=== PATIENT | male | born 1975 | race Caucasian/White ===

== ENCOUNTER → 2016-03-06 | Outpatient (CLI) | payer MEDICAID ==
[~2016-03-06] MED LIST: AMOXIL500 M1 PO; BACTRIM DS 8001 TAB PO; BYSTOLIC5 MG PO; CARVEDILOL 1212.5 MG PO; CARVEDILOL12.5 MG PO; CIPRODEX 0.3%-7.5 ML OT; CLONIDINE HYDR0.2 MG PO; FLEXERIL10 MG PO; HYDROCHLOROTHIA1 TA2 PO; HYDROCHLOROTHIA25 M1 PO; INDOMETHACIN50 MG PO; KEFLEX 500MG.500 MG PO; LISINOPRIL 10MG10 MG PO; LISINOPRIL 20MG20 MG PO; LISINOPRIL AND1 TA3 PO; LISINOPRIL/HCTZ1 TA3 PO; LISINOPRIL20 MG PO; METOPROLOL50 MG PO; NAPROSYN 500MG500 MG PO; PREDNISONE 20MG20 MG PO; SULFAMETHOXAZOL1 TA6 PO; VISTARIL25 MG PO; ZESTORETIC 25 M1 TA1 PO; ZITHROMAX Z PA250 MG PO; ZYRTEC10 M1 PO
== END ==
LOC: RT 15:18
DX: R55 Syncope and collapse (principal)

== ENCOUNTER → 2016-03-09 | Outpatient (CLI) | payer MEDICAID ==
--- NOTE | 2016-03-09 09:28 | CARDIOVASCULAR REPORT ---
"Cerebrovascular Exam Indications: 780.2 Syncope and collapse. IMPRESSIONS 1. The bilateral vertebral arteries are patent with normal antegrade flow. 2. Study suggests less than 20% stenosis involving the right internal carotid artery and the left internal carotid artery. History: Risk factors: Hypertension. Carotid duplex study. Complete study and Doppler flow study including spectral analysis, color and marie scale imaging. Height: Height: 188cm. Height: 74in. Weight: Weight: 107kg. Weight: 235.5lb. Body mass index: BMI: 30.3kg/m^2. Body surface area: BSA: 2.39m^2. Location: Vascular laboratory. Patient status: Outpatient. Tables: Arterial flow: + +--------+--------+ |Location |V sys |V ed | + +--------+--------+ |Right CCA - proximal|77.8cm/s|25.1cm/s| + +--------+--------+ |Right CCA - distal |67.6cm/s|28.3cm/s| + +--------+--------+ |Right ECA |80.9cm/s|--------| + +--------+--------+ |Right ICA - proximal|62.9cm/s|17.3cm/s| + +--------+--------+ |Right ICA - mid |29.8cm/s|12.7cm/s| + +--------+--------+ |Right ICA - distal |65.1cm/s|29.2cm/s| + +--------+--------+ |Right vertebral |39.7cm/s|--------| + +--------+--------+ |Left CCA - proximal |62.3cm/s|16cm/s | + +--------+--------+ |Left CCA - distal |72.2cm/s|27.6cm/s| + +--------+--------+ |Left ECA |92.6cm/s|--------| + +--------+--------+ |Left ICA - proximal |43.2cm/s|15.7cm/s| + +--------+--------+ |Left ICA - mid |77.3cm/s|34.9cm/s| + +--------+--------+ |Left ICA - distal |81.2cm/s|38.4cm/s| + +--------+--------+ |Left vertebral |41.5cm/s|--------| + +--------+--------+ Velocity ratios: + + + + + + | |Right, V sys|Right, V ed|Left, V sys|Left, V ed| + + + + + + |Max ICA/dist CCA|0.96 |1.03 |1.12 |1.39 | + + + + + + (Report amended ) Electronically signed by: Mat Wilson [id number]"
--- NOTE | 2016-03-09 16:17 | RADIOLOGY REPORT PS360 ---
[id number] HISTORY: HTN,SYNCOPE,ABNORMAL EKG,CKD STAGE II COMPARISON: None FINDINGS: RIGHT KIDNEY:Unremarkable. Normal size and echogenicity. No hydronephrosis. 12 x 5 x 6 cm LEFT KIDNEY:Unremarkable. No hydronephrosis. Normal size and echogenicity.. 10 x 5 x 6 cm OTHER FINDINGS: Cholelithiasis incidentally noted IMPRESSION: 1. Negative bilateral renal ultrasound. 2. Cholelithiasis
== END ==
LOC: RAD 08:23 → RT 09:30
DX: R55 Syncope and collapse (principal); I10 Essential (primary) hypertension; R94.31 Abnormal electrocardiogram [ECG] [EKG]; N18.2 Chronic kidney disease, stage 2 (mild)

== ENCOUNTER 2016-10-26 23:11 | Emergency (ER) | payer MEDICAID ==
[~2016-10-26] VITALS: Ht 188 cm; Wt 111.1 kg
[2016-10-27] MEDS ORDERED: PREDNISONE 20MG20 MG PO (00:38)
--- NOTE | 2016-10-27 00:39 | Emergency Room Report ---
History of Present Illness Time Seen by MD Marsh Presenting Problem in Triage Pt arrived:Walked Presenting Problem:C/O LEFT KNEE PAIN AND SWELLING. NO KNOWN INJURY Onset of symptoms date/time:10/26/16 or onset unknown for: Treatment Prior to Arrival: [facility] [employer] Provided by: Sepsis Risk Assessment: Temp: 97.8 B/P: 156/99 MAP: 118 Pulse: 103 Resp: 20 Recent fever? N Clinical Suspician of Infection? N Mental Status: 1 - Regular (Normal Baseline) Sepsis Risk:Possible Sepsis Risk Have you (or family members/close friends) recently traveled outside the [place]? N If Yes, where/when: Have you had exposure to infectious disease within the past month? N TB? Other? Specify: Source patient, RN notes reviewed, family, old records Exam Limitations no limitations Comment atraumatic lt knee pain and has swelling and stiff with no reddness over the last few days Cardiac Chest Pain Chest pain indicative of cardiac No Timing/Duration this evening Severity moderate ALLERGIES Coded Allergies: No Known Allergies (02/28/16) Home Medications Active Scripts LISINOPRIL/HYDROCHLOROTHIAZIDE (Lisinopril-Hctz 20-25 MG Tab) 1 TAB PO DAILY #30 TAB Ref 2 Prov: 02/29/16 Metoprolol Tartrate (Metoprolol) 50 MG PO BID #60 TAB Ref 2 Prov: 02/29/16 History Medical History General CAD? No Angina: Yes [place]: No Hypertension? Yes Hyperlipidemia? No CHF? No DVT? No PE? No COPD? No Asthma? No Anemia? No GERD? No Gastric ulcers? No GI Bleed? No Hernia? No Thyroid Problems? No Hypothyroidism? No CVA? No Seizures? No Diabetes? No Renal Insuffiency? Yes End Stage Renal Disease? No UTI? No Stones? No BPH? No GB Disease: No Nephritic Syndrome? No Asplenia? No Hepatitis? No Sickle Cell Disease? No Arthritis? No Migraines? No Cataracts? No Glaucoma? No MRSA? No HIV? No TB? No Anxiety? No Depression? No Cancer? No More? 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 Respiratory denies cough, denies shortness of breath Cardiovascular denies chest pain, denies palpitations, denies syncope Gastrointestinal denies abdominal pain, denies diarrhea, denies vomiting Genitourinary denies: dysuria, frequency, hesitancy, hematuria. Musculoskeletal see HPI, denies back pain, joint pain, joint swelling, denies neck pain Skin denies rash Psychiatric/Neurological denies seizure Physical Exam Vital Signs Vital Signs Date Time Temp Pulse Resp B/P Pulse O2 O2 Flow FiO2 Ox Delivery Rate 10/26 2319 97.8 103 20 156/99 95 - WBC >12,000 or <4,000 or 10% bands? 2 or more SIRS Criteria Met? B/P:156/99 MAP:118 Creatinine >2.0? UA output<0.5ml/kg/hr for 2 hrs? Platelet count >100,000? Lactate >2.0mmol/1? INR >1.2 or PTT > than 60 sec? Evidence of Organ Dysfunction? Provider documented clinical suspician of infection? N Sepsis Criteria Count: 2 Sepsis Risk: Possible Sepsis Risk General Appearance no apparent distress Eye Exam - bilateral eye PERRL, bilateral eye EOMI Ear, Nose, Throat normal ENT inspection Neck non-tender Respiratory Status No: respiratory distress. Cardiovascular regular rate/rhythm Peripheral Pulses Pulses normal Yes Extremities no calf tenderness, swelling, sl effusion and good rom of lt knee - neurovascuylar ok Strength 4 Upper Ext (L), 4 Upper Ext (R), 4 Lower Ext (L), 4 Lower Ext (R) Neurologic alert, gas and oil servicer II-XII nml as tested, no motor/sensory deficits Reflexes Reflexes normal No Mental status normal mood/affect Skin intact Medical Decision Making LABS/Meds/Orders Pt receiving controlled substance in ED? No Results/Orders Orders Procedure Date/time Status KNEE-3 VIEWS-LT 10/26 2324 Active XRAY/CT/US XRAY/CT/US XRAY knee XR interpretation by reviewed by me Xray Results no fracture seen Departure Departure Time of Disposition 0032 Disposition DC Home or Self Care(routine) Clinical Impression Primary Impression: Sprain of knee Qualifiers: Encounter type: initial encounter Involved ligament of knee: unspecified ligament Laterality: left Qualified Code: S83.92XA - Sprain of unspecified site of left knee, initial encounter Condition STABLE Referrals Kyrie Salter APRN (Family) Patient Instructions DI for Knee Sprain Additional Instructions use meds and see pcp for follow up Discharge Counseling Counseled pt/family regarding diagnosis, test results, medications/RX, follow up needs Prescriptions Current Visit Scripts Prednisone (Prednisone 20MG) 20 MG PO BID #10 TAB ED Critical Care Critical Care No at 0039
[2016-10-27 00:54] VITALS: BP 148/87
--- NOTE | 2016-10-27 04:45 | RADIOLOGY REPORT PS360 ---
KNEE-3 VIEWS-LT HISTORY: Left knee pain following injury C/O LEFT KNEE PAIN ORDERING PHYSICIAN: Monique Funes MD PATIENT AGE: 41 years COMPARISON: 04/07/2015 FINDINGS: No fracture or dislocation. No lytic or blastic change. Normal mineralization. No significant arthritic changes evident. No other significant findings IMPRESSION: Negative Knee
== END 2016-10-27 00:55 | disposition home or self-care (01) ==
LOC: ER 23:11
DX: S83.92XA Sprain of unspecified site of left knee, initial encounter (principal); I10 Essential (primary) hypertension

== ENCOUNTER 2016-11-20 12:29 | Emergency (ER) | payer MEDICAID ==
[~2016-11-20] VITALS: Ht 188 cm; Wt 111.3 kg
--- NOTE | 2016-11-20 13:47 | Urgent Treatment Center Report ---
History of Present Issue Date/Time Seen by Provider 11/20/16 7839 Visit Reason Pt arrived:Walked Presenting Problem:PT C/O OF LEFT ANKLE PAIN. STATES HE THINKS IT MAY BE GOUT Location if Accident: Onset of symptoms date/time:11/14/1602/18/1800 or onset unknown for: Have you (or family members/close friends) recently traveled outside the [place]? N If Yes, where/when: Have you had exposure to infectious disease within the past month? TB? Other? Specify: c/o left ankle pain and swelling since Sunday, 5 days ago. no known injury. Rest, ice, elevated has helped the swelling. Still painful and difficult to walk. Hasn't taken anything for symptoms. Hx of gout and thinks that is the cause. Reports recently dx stage 2 kidney disease. Denies redness. pain throughout ankle, unable to localize. Source patient Exam Limitations no limitations ALLERGIES Coded Allergies: No Known Allergies (02/28/16) Home Medications Active Scripts LISINOPRIL/HYDROCHLOROTHIAZIDE (Lisinopril-Hctz 20-25 MG Tab) 1 TAB PO DAILY #30 TAB Ref 2 Prov: 02/29/16 Metoprolol Tartrate (Metoprolol) 50 MG PO BID #60 TAB Ref 2 Prov: 02/29/16 Prednisone (Prednisone 20MG) 20 MG PO BID #10 TAB Prov: 10/27/16 History Medical History General CAD? No Angina: Yes [place]: No Hypertension? Yes Hyperlipidemia? No CHF? No DVT? No PE? No COPD? No Asthma? No Anemia? No GERD? No Gastric ulcers? No GI Bleed? No Hernia? No Thyroid Problems? No Hypothyroidism? No CVA? No Seizures? No Diabetes? No Renal Insuffiency? Yes UTI? No Stones? No BPH? No GB Disease: No Nephritic Syndrome? No Asplenia? No Hepatitis? No Sickle Cell Disease? No Arthritis? No Migraines? No Cataracts? No Glaucoma? No MRSA? No HIV? No TB? No Anxiety? No Depression? No Cancer? No More? 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 Family History Family HX Diabetes No CAD Yes Hypertension No Hyperlipidemia No Cancer Yes TB No Social History Smoking Hx Smoker: Never Smoker Tobacco: No Packs/day < 1 Pack Alcohol Alcohol: No Review of Systems All Other Systems Reviewed and Negative Constitutional denies fever, denies malaise Musculoskeletal see HPI, denies other (foot or leg pain) Skin denies change in color, denies lesions Psychiatric/Neurological denies numbness, denies tingling Physical Exam Vital Signs Vital Signs Date Time Temp Pulse Resp B/P Pulse O2 O2 Flow FiO2 Ox Delivery Rate 11/20 1305 98.7 95 20 128/94 97 General Appearance normal appearance, no apparent distress Respiratory Status No: respiratory distress. Cardiovascular no peripheral edema Peripheral Pulses Pulses normal Yes (PT/DP) Back gait abnormality (limp, favoring left) Extremities mild generalized swelling left ankle, tenderness left lateral and medial ankle, full ROM but c/o "discomfort" with all left ankle ROM Strength 5 Lower Ext (L), 5 Lower Ext (R) Neurologic alert, no motor/sensory deficits, oriented x 3 Skin intact, normal color, warm/dry Medical Decision Making LABS/Meds/Orders Pt receiving controlled substance in ED? No Results/Orders Laboratory Tests 11/20/16 1410: Uric Acid 14.4 H, WBC 6.9, RBC 4.69, Hgb 13.9 L, Hct 41.2 L, MCV 87.8, RDW 13.7, Plt Count 433 H, MPV 7.7, Gran % 66.4, Gran # 4.6, Lymphocytes % 21.9, Monocytes % 6.2, Eosinophils % 4.7, Basophils % 0.8, Lymphocytes # 1.5, Monocytes # 0.4, Eosinophils # 0.3, Basophils # 0.1, PUBS MCHC 33.7, MCH 29.6 Orders Procedure Date/time Status ANKLE-LT-3 VIEWS 11/20 1343 Active URIC ACID 11/20 1343 Complete CBC WITH AUTO DIFF 11/20 1343 Complete XRAY/CT/US XRAY/CT/US XRAY ankle XR interpretation by reviewed by me (prelim, radiologist not avail) Xray Results no fracture seen, radiologist and ER MD remain not available to review xray. Pt aware to follow up with primary care for final result but given labs, HPI, PMHx, likely gout. Progress [facility] Progress Notes Date 11/20/16 Time 1414 Comment lab at BS Departure Departure Time of Disposition 1433 Disposition DC Home or Self Care(routine) Clinical Impression Primary Impression: Gout attack Qualifiers: Gout site: ankle Gout etiology: unspecified cause Laterality: left Qualified Code: M10.9 - Gout, unspecified Condition STABLE Referrals Kyrie Salter APRN (Family) Call and schedule FU to discuss attack, ensure it resolves and to evaluate if medication to prevent attacks is necessary. Patient Instructions DI for Gout Additional Instructions Continue steroid taper since you are not able to take NSAIDs with your kidney disease. Follow up is very important as medication adjustments or medication to prevent attacks might be necessary. * Avoid foods known to cause gout as discussed. Discharge Counseling Counseled pt/family regarding diagnosis, test results, medications/RX, home care, follow up needs Prescriptions Current Visit Scripts Prednisone (Prednisone 10MG) 10-50 MG PO DAILY #30 TAB Taper: [id number], 73nmc3d, 99bfl0j, 21ywf8t, 60lgh4l at 1448
--- NOTE | 2016-11-20 13:47 | Urgent Treatment Center Report ---
History of Present Issue Date/Time Seen by Provider 11/20/16 1349 Visit Reason Pt arrived:Walked Presenting Problem:PT C/O OF LEFT ANKLE PAIN. STATES HE THINKS IT MAY BE GOUT Location if Accident: Onset of symptoms date/time:11/14/1602/18/1800 or onset unknown for: Have you (or family members/close friends) recently traveled outside the [place]? N If Yes, where/when: Have you had exposure to infectious disease within the past month? TB? Other? Specify: c/o left ankle pain and swelling since Sunday, 5 days ago. no known injury. Rest, ice, elevated has helped the swelling. Still painful and difficult to walk. Hasn't taken anything for symptoms. Hx of gout and thinks that is the cause. Reports recently dx stage 2 kidney disease. Denies redness. pain throughout ankle, unable to localize. Source patient Exam Limitations no limitations ALLERGIES Coded Allergies: No Known Allergies (02/28/16) Home Medications Active Scripts LISINOPRIL/HYDROCHLOROTHIAZIDE (Lisinopril-Hctz 20-25 MG Tab) 1 TAB PO DAILY #30 TAB Ref 2 Prov: 02/29/16 Metoprolol Tartrate (Metoprolol) 50 MG PO BID #60 TAB Ref 2 Prov: 02/29/16 Prednisone (Prednisone 20MG) 20 MG PO BID #10 TAB Prov: 10/27/16 History Medical History General CAD? No Angina: Yes [place]: No Hypertension? Yes Hyperlipidemia? No CHF? No DVT? No PE? No COPD? No Asthma? No Anemia? No GERD? No Gastric ulcers? No GI Bleed? No Hernia? No Thyroid Problems? No Hypothyroidism? No CVA? No Seizures? No Diabetes? No Renal Insuffiency? Yes UTI? No Stones? No BPH? No GB Disease: No Nephritic Syndrome? No Asplenia? No Hepatitis? No Sickle Cell Disease? No Arthritis? No Migraines? No Cataracts? No Glaucoma? No MRSA? No HIV? No TB? No Anxiety? No Depression? No Cancer? No More? 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 Family History Family HX Diabetes No CAD Yes Hypertension No Hyperlipidemia No Cancer Yes TB No Social History Smoking Hx Smoker: Never Smoker Tobacco: No Packs/day < 1 Pack Alcohol Alcohol: No Review of Systems All Other Systems Reviewed and Negative Constitutional denies fever, denies malaise Musculoskeletal see HPI, denies other (foot or leg pain) Skin denies change in color, denies lesions Psychiatric/Neurological denies numbness, denies tingling Physical Exam Vital Signs Vital Signs Date Time Temp Pulse Resp B/P Pulse O2 O2 Flow FiO2 Ox Delivery Rate 11/20 1305 98.7 95 20 128/94 97 General Appearance normal appearance, no apparent distress Respiratory Status No: respiratory distress. Cardiovascular no peripheral edema Peripheral Pulses Pulses normal Yes (PT/DP) Back gait abnormality (limp, favoring left) Extremities mild generalized swelling left ankle, tenderness left lateral and medial ankle, full ROM but c/o "discomfort" with all left ankle ROM Strength 5 Lower Ext (L), 5 Lower Ext (R) Neurologic alert, no motor/sensory deficits, oriented x 3 Skin intact, normal color, warm/dry Medical Decision Making LABS/Meds/Orders Pt receiving controlled substance in ED? No Results/Orders Laboratory Tests 11/20/16 1410: Uric Acid 14.4 H, WBC 6.9, RBC 4.69, Hgb 13.9 L, Hct 41.2 L, MCV 87.8, RDW 13.7, Plt Count 433 H, MPV 7.7, Gran % 66.4, Gran # 4.6, Lymphocytes % 21.9, Monocytes % 6.2, Eosinophils % 4.7, Basophils % 0.8, Lymphocytes # 1.5, Monocytes # 0.4, Eosinophils # 0.3, Basophils # 0.1, PUBS MCHC 33.7, MCH 29.6 Orders Procedure Date/time Status ANKLE-LT-3 VIEWS 11/20 1343 Active URIC ACID 11/20 1343 Complete CBC WITH AUTO DIFF 11/20 1343 Complete XRAY/CT/US XRAY/CT/US XRAY ankle XR interpretation by reviewed by me (prelim, radiologist not avail) Xray Results no fracture seen, radiologist and ER MD remain not available to review xray. Pt aware to follow up with primary care for final result but given labs, HPI, PMHx, likely gout. Progress [facility] Progress Notes Date 11/20/16 Time 1414 Comment lab at BS Departure Departure Time of Disposition 1433 Disposition DC Home or Self Care(routine) Clinical Impression Primary Impression: Gout attack Qualifiers: Gout site: ankle Gout etiology: unspecified cause Laterality: left Qualified Code: M10.9 - Gout, unspecified Condition STABLE Referrals Kyrie Satler APRN (Family) Call and schedule FU to discuss attack, ensure it resolves and to evaluate if medication to prevent attacks is necessary. Patient Instructions DI for Gout Additional Instructions Continue steroid taper since you are not able to take NSAIDs with your kidney disease. Follow up is very important as medication adjustments or medication to prevent attacks might be necessary. * Avoid foods known to cause gout as discussed. Discharge Counseling Counseled pt/family regarding diagnosis, test results, medications/RX, home care, follow up needs Prescriptions Current Visit Scripts Prednisone (Prednisone 10MG) 10-50 MG PO DAILY #30 TAB Taper: 38shb2a, 96dms4d, 23waa4l, 75knk5o, 36eff8q at 1446
[2016-11-20 14:20] LABS: HEMOGLOBIN 13.9 g/dL (14.1-18.0); LYMPH # 1.5 K/mm3 (0.7-4.5); LYMPH % 21.9 % (10-50)
[2016-11-20 14:42] VITALS: BP 128/94
--- NOTE | 2016-11-20 15:52 | RADIOLOGY REPORT PS360 ---
ANKLE-LT-3 VIEWS HISTORY: swollen painful ankle, no known injury, hx gout ORDERING PHYSICIAN: YUNI ONEILL APRN PATIENT AGE: 41 years COMPARISON: 06/10/2012 FINDINGS: No fracture or dislocation. No lytic or blastic change. There is normal mineralization.. The joint spaces are well-preserved. No significant degenerative/arthritic changes. No erosive changes evident. IMPRESSION: Negative ankle, no acute finding
--- OUTSIDE RECORDS SUMMARY | 2016-12-13 03:42 | External Medical Summary Rpt ---
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 VISIT SERVICES O HIGH SEVERITY& ASSOCIATE THREAT S [facility] HOSPITAL JARED - 9 9 [facility] OUTPATIEN INC T EMERGENCY 86850 JARED 9 9 [facility] DEPARTMEN INC T VISIT HIGH/URGE NT SEVERITY OFFICE 39183 MEANS BUTROS, OUTPATIEN 9 9 ADULT АННА T VISIT PRIMARY 15 CARE [facility]OSPITAL JARED - 9 9 [facility] OUTPATIEN INC T EMERGENCY 44097 JARED 9 9 [facility] DEPARTMEN INC T VISIT HIGH/URGE NT SEVERITY HOSPITAL JARED - 9 9 [facility] OUTPATIEN INC T EMERGENCY 19195 JARED 8 8 [facility] DEPARTMEN INC T VISIT HIGH/URGE NT SEVERITY HOSPITAL JARED - 8 8 [facility] OUTPATIEN INC T EMERGENCY 93913 SANAM JOHNSON DEPT 8 8 NATIONAL ROSSY VISIT CORPORATI O HIGH ON SEVERITY& THREAT [facility] HOSPITAL JARED - 8 8 [facility] OUTPATIEN INC T EMERGENCY 03250 SANAM JOHNSON, 8 8 NATIONAL ROSSY DEPARTMEN CORPORATI O T VISIT ON MODERATE SEVERITY EMERGENCY 33052 JARED 8 8 [facility] INC T VISIT HIGH/URGE [facility] JARED Plascencia 8 [facility] OUTPATIEN INC T
--- OUTSIDE RECORDS SUMMARY | 2016-12-13 03:42 | External Medical Summary Rpt ---
Author Author , EVELIA Berg LADIMICHAELA Address Unknown Phone [email or web address] Care Team Providers Care Professional Builder Name Role Phone TIFFANY ALLEN Unavailable Unavailable BESSON BESSON Unavailable Unavailable JSOEF MISAEL A, Unavailable Unavailable BESSON, MISAEL A GARCES, GARCES Unavailable Unavailable BUTROS REZKALLA, Unavailable Unavailable BUTROS, REZKALLA CLAUDETTE BENNETT, Unavailable Unavailable CLAUDETTE BENNETT FRYMAN Unavailable Unavailable MANUELITO FUNES Unavailable Unavailable GISELE FUNES, Unavailable Unavailable GISELE FUNES [facility] Unavailable Unavailable INC, [facility] Unavailable Unavailable HOSPITAL P, [facility], Unavailable Unavailable [facility] Unavailable Unavailable IMAGING ASS, [facility] BERTO RODRIGUEZ, Unavailable Unavailable BERTO [...] 2016 Problems Code Diagnosis DOS Provider Status [id number] SPRAIN 10-27-2016 [facility] UNSPECIFIED PHYSICIANS, SITE LT PLLC KNEE INITIAL ENCNTR R55 SYNCOPE AND 10-04-2016 [facility] COLLAPSE PHYSICIANS GROUP I10 ESSENTIAL 09-26-2016 [facility] PRIMARY PHYSICIANS HYPERTENSIO GROUP N I4510 UNSPECIFIED 09-26-2016 [facility] RIGHT PHYSICIANS BUNDLE-BRAN GROUP CH BLOCK N182 CHRONIC 09-26-2016 [facility] KIDNEY PHYSICIANS DISEASE GROUP STAGE 2 MILD N08 GLOMERULAR 04-26-2016 [facility]ORDERS [facility] IN DISEASES INC CLASSIFIED ELSW R42 DIZZINESS 04-26-2016 [facility] GIDDINESS INC I150 RENOVASCULA 03-15-2016 [facility] HYPERTENSIO N R9431 ABNORMAL 03-15-2016 [facility] ELECTROCARD [facility] IOGRAM INC I119 HYPERTENSIV 03-07-2016 [facility] E HEART PHYSICIANS DISEASE GROUP WITHOUT HEART FAILURE M542 CERVICALGIA 02-28-2016 [facility] M545 LOW BACK 02-28-2016 [place] PAIN [facility] R51 HEADACHE 02-28-2016 [facility] X127ABY UNSPECIFIED 02-28-2016 [place] INJURY OF MEDICAL NECK IMAGING ASS INITIAL ENCOUNTER Z0389 ENCOUNTER 02-28-2016 [facility] OT MEDICAL SUSPCT DZ & IMAGING ASS COND RULED OUT S42115 PT 02-28-2016 [facility] P MED REGIMEN OTH REASON H6092 UNSPECIFIED 12-13-2015 [facility] OTITIS PHYSICIANS, EXTERNA PLLC LEFT EAR J029 ACUTE 12-13-2015 [facility] PHARYNGITIS PHYSICIANS, PLLC UNSPECIFIED Z0100 ENCOUNTER 10-30-2015 [place] EXAM EYES & GRE VISION W/O ABNORMAL FIND 4019 UNSPECIFIED 10-03-2010 [facility] ESSENTIAL [facility] [place] N 28966 DIAB W/OTH 01-06-2009 [facility] TYPE II/UNS [facility] NOT PROF SERV UNCNTRL 4011 ESSENTIAL 01-06-2009 [facility] 5859 CHRONIC 01-06-2009 [facility] UNSPECIFIED PROF SERV 7840 HEADACHE 01-06-2009 [facility] 5950 ACUTE 10-16-2008 [facility]IS [facility] 5959 UNSPECIFIED 10-16-2008 [facility] 13164 HEMATURIA 10-16-2008 [place] [facility] 7242 LUMBAGO 10-16-2008 [facility] 7804 DIZZINESS 10-16-2008 [facility] GIINESS INC 03864 OTHER 10-16-2008 [facility]UE [facility] 5829 CHRONIC GLN 09-08-2008 [facility] L LESION KIDNEY 7910 PROTEINURIA 09-08-2008 [facility] 4358 OTHER 03-25-2008 [facility] SPECIFIED [facility] CEREBRAL PROF SERV ISCHEMIAS 89397 CHEST PAIN 03-25-2008 [place] [facility] 00082 SHORTNESS 10-29-2007 [facility] 33661 PRECORDIAL 10-29-2007 [facility] 12157 OTHER CHEST 10-29-2007 [facility] PAIN [facility] 90781 UNSPECIFIED 10-25-2007 [facility] SITE OF [employer] ANKLE [place] [employer] SPRAIN AND STRAIN 70123 ABNORMAL 10-17-2007 [facility] COAGULATION [facility] PROFILE [...] 50 1- 6- 00 07 MA ve VT 55 20 20 49 RT IL 35 17 17 16 4 44 PH 20 AR MA MG CY TA #5 BL 91 ET LI 68 08 09 60 30 00 WA Ac SI 64 -0 -0 .0 00 L- ti NO 50 3- 1- 00 07 MA ve VT 55 20 20 49 RT IL 35 [...] 80 5- 8- 00 07 MA ve VT 99 20 20 49 RT IL 61 [...] 80 5- 0- 00 07 MA ve VT 99 20 20 49 RT IL 61 [...] 80 3- 6- 00 07 MA ve VT 99 20 20 46 RT IL 61 [...] 80 1- 8- 00 07 MA ve VT 99 20 20 46 RT IL 61 [...] 80 7- 1- 00 07 MA ve VT 99 20 20 46 RT IL 61 [...] 80 1- 4- 00 07 MA ve VT 99 20 20 46 RT IL 61 [...] LI 54 01 01 60 30 00 MT Ac SI 45 -0 -2 .0 00 L- ti NO 80 3- 7- 00 07 MA ve VT 99 20 20 46 RT IL 61 17 17 24 0 27 PH 20 AR MA MG CY TA #5 BL 91 ET CA 68 01 01 28 14 00 MT Ac RV 46 -0 -2 .0 00 L- ti ED 20 3- 7- 00 07 MA ve IL 16 20 20 46 RT OL 50 17 17 21 5 58 PH 25 AR MA MG CY TA #5 BL 91 ET ME 68 12 01 60 30 00 MT Ac TO 64 -2 -2 .0 00 L- ti VT 50 7- 0- 00 07 MA ve OL 19 20 20 46 RT OL 05 16 17 06 9 98 PH TA AR RT MA RA CY TE #5 50 91 MG TA B LI 54 12 01 30 30 00 MT Ac SI 45 -2 -2 .0 00 L- ti NO 80 7- 0- 00 07 MA ve VT 99 20 20 46 RT IL 11 [...] SI 18 -0 NO 00 8- Lo VT 51 20 ng IL 80 13 er [...] Procedure DOS Code Location Performer Comment INTERROGA 66088 [facility] WANDER TION 7 PHYSICIAN EVALUATIO S GROUP N IN PERSON ILR SYSTEM ECG 76109 [facility] COLEMAN ROUTINE 7 [facility] ECG INC INC W/LEAST 12 LDS TRCG ONLY W/O I&R ECG 92217 [facility] WANDER ROUTINE 7 PHYSICIAN ECG S GROUP W/LEAST 12 LDS I&R ONLY INTERROGA 92956 [facility] WANDER TION 7 PHYSICIAN EVALUATIO S GROUP N IN PERSON ILR SYSTEM INTERROGA 22125 [facility] WANDER TION 7 PHYSICIAN EVALUATIO S GROUP N IN PERSON ILR SYSTEM INTERROGA 43256 [facility] WANDER TION 7 PHYSICIAN EVALUATIO S GROUP N IN PERSON ILR SYSTEM ECG 77485 [facility] COLEMAN ROUTINE 7 [facility] ECG INC INC W/LEAST 12 LDS TRCG ONLY W/O I&R ELECTROEN 55105 [facility] ANNA-Jay CEPHALOGR 7 PHYSICIAN OGMARYSE AM W/REC S GROUP AWAKE&ASL EEP DUP-SCAN 14039 BRAIN GARCES ARTL CELINE 7 S. DARLIN, ABDL/PEL/ PLLC SCROT&/RP R ORGN LMT ECG 83570 [facility] COLEMAN ROUTINE [address] [facility] ECG INC INC W/LEAST 12 LDS TRCG ONLY W/O [place] [address] J[facility] COLEMAN RETROPERI [address] [facility] TONEAL INC [place] [address] [place] GARCES RETROPERI 7 MEDICAL TONEAL IMAGING REAL TIME ASS W/IMAGE LIMITED DUPLEX 59715 [place] GARCES SCAN 7 MEDICAL EXTRACRAN IMAGING IAL ART ASS COMPL BI STUDY UNCLASSIF J3490 [facility] COLEMAN IED DRUGS 7 [facility] INC INC IMPLANTAT 00314 JARED COLEMAN ION [address] [facility] PT-ACTIVA INC INC YANY CARDIAC EVENT RECORDER EVENT C1764 J[facility]ED COLEMAN RECORDER [address] [facility] CARDIAC INC INC SEDIMENTA 14746 JARED COLEMAN TION RATE [address] [facility] RBC INC INC NON-AUTOM ATED ECG 70967 [facility] COLEMAN ROUTINE 7 [facility] ECG INC INC W/LEAST 12 LDS TRCG ONLY W/O I&[place] [address] J[facility]ED COLEMAN FREE [address] [facility] [address] JARED COLEMAN THYROID [address] [facility] STIMULATI INC INC NG HORMONE TSH COLLECTIO 18599 JARED COLEMAN N VENOUS [address] [facility] BLOOD INC INC VENIPUNCT URE ECG 70712 [facility] ROUTINE 7 PHYSICIAN ECG S GROUP W/LEAST 12 LDS I&R ONLY ECHO 56676 [facility]ED COLEMAN TTHRC R-T 6 [facility] 2D INC INC W/WOM-MOD E COMPL SPEC&COLR D ELECTROEN 25578 [facility]ED COLEMAN CEPHALOGR 6 [facility] AM W/REC INC [facility] G0378 J[facility]ED COLEMAN OBSERVATI 6 [facility] ON INC INC SERVICE PER HOUR COLLECTIO 87094 JARED COLEMAN N VENOUS [address] [facility] BLOOD INC INC VENIPUNCT URE BLOOD 88966 J[facility]ED COLEMAN COUNT 6 [facility] COMPLETE INC INC AUTO&AUTO DIFRNTL WBC BASIC 39873 JARED COLEMAN METABOLIC [address] [facility] PANEL INC INC CALCIUM TOTAL RADIOLOGI 01625 [facility] C EXAM 6 MEDICAL CHEST 2 IMAGING VIEWS ASS FRONTAL&[place] [address] JARED COLEMAN TROPONIN [address] [facility] QUANTITAT INC INC WILMER RADIOLOGI 51909 [facility] C EXAM 6 MEDICAL CHEST 2 IMAGING VIEWS ASS FRONTAL&[place] [address] [facility] HEAD/BRAI 6 MEDICAL N W/O IMAGING CONTRAST ASS MATERIAL BLOOD 64434 [facility] COLEMAN COUNT 6 [facility] COMPLETE INC INC AUTO&AUTO DIFRNTL WBC ECG 49599 J[facility]ED BHAENA ROUTINE 6 [facility] W/LEAST P 12 LDS I&R ONLY CREATINE 06508 J[facility]ED COLEMAN KINASE 6 [facility] TOTAL INC INC COLLECTIO 73301 JARED COLEMAN N VENOUS 6 [facility] BLOOD INC INC VENIPUNCT [facility] G0378 JARED COLEMAN OBSERVATI 6 [facility] ON INC INC SERVICE PER HOUR ECG 71951 JARED COLEMAN ROUTINE 6 [facility] ECG INC INC W/LEAST 12 LDS TRCG ONLY W/O I&R THER 28675 JARED COLEMAN PROPH/DX [address] [facility] NJX IV INC INC PUSH SINGLE/1S T SBST/DRUG THER 58470 [facility] COLEMAN PROPH/DX 6 [facility] NJX EA INC INC SEQL IV PUSH SBST/DRUG FAC CREATINE 93551 JARED COLEMAN KINASE MB 6 [facility] FRACTION INC INC ONLY COMPREHEN 28481 JARED COLEMAN SIVE [address] [facility] METABOLIC INC INC PANEL RADEX 72411 SELAM ALLEN SPINE 6 MEDICAL LUMBOSACR IMAGING AL [place] [address] [place] [address] [facility]ERVICAL 6 MEDICAL SPINE W/O IMAGING CONTRAST ASS MATERIAL UNCLASSIF J3490 JARED COLEMAN IED DRUGS [address] [facility] INC INC OPHTH 96218 [facility] 6 GRE GRE XM&EVAL COMPRE NEW PT 1/> VST DETERMINA 44817 [facility] TION 6 GRE GRE REFRACTIV E STATE BLOOD 79272 J[facility]ED COLEMAN COUNT 1 [facility] COMPLETE INC INC AUTO&AUTO DIFRNTL WBC LIPID 50415 JARED TERRY PANEL [address] [facility] HARVEY INC COLLECTIO 59328 JARED COLEMAN N VENOUS [address] [facility] BLOOD INC INC VENIPUNCT URE COMPREHEN 23833 [facility]ED COLEMAN SIVE 1 [facility] [place] [address] JARED COLEMAN THYROID 1 [facility] [place]ULAT[place] [address] JARED COLEMAN INFUSION [address] [facility] THERAPY/P INC INC ROPHYLAXI S /DX 1ST TO 1 HR THERAPEUT 94623 JAERD COLEMAN IC [address] [facility] INJECTION INC INC IV PUSH EACH NEW DRUG BASIC 21034 JRAED COLEMAN METABOLIC [address] [facility] PANEL INC INC CALCIUM TOTAL ECG 15750 JARED RODRIGUEZ, ROUTINE 0 [facility] W/LEAST PROF SERV 12 LDS I&R ONLY ECG 90266 JARED COLEMAN ROUTINE [address] [facility] ECG INC INC W/LEAST 12 LDS TRCG ONLY W/O I&R CREATINE 07261 JAREDLISA COLEMAN KINASE 9 [facility] TOTAL INC INC BLOOD 22777 JARED JARED COUNT 9 [facility] COMPLETE INC INC AUTO&AUTO DIFRNTL WBC ECG 85957 [facility] COLEMAN ROUTINE 9 [facility] ECG INC INC W/LEAST 12 LDS TRCG ONLY W/O I&R ECG 44767 ANGEL LANZAEY, ROUTINE 9 EMERGENCY GISELE S ECG SERVICES W/LEAST 12 LDS ASSOCIATE I&R ONLY S BASIC 89612 [facility]ED COLEMAN METABOLIC 9 [facility] [place] [address] JARED FINLEYON TROPONIN 9 [facility] QUANTITAT INC INC WILMER CREATINE 56233 JARED JARED KINASE MB 9 [facility] FRACTION INC INC ONLY COMPREHEN 68789 JAREDLISA COLEMAN SIVE 9 [facility] [place] [address] JARED COLEMAN ABDOMEN 9 [facility] W/O INC INC CONTRAST MATERIAL CT PELVIS 70488 [facility], W/O 9 MEDICAL MARCELO P CONTRAST IMAGING MATERIAL ASSOCIATE S 3D 76984 JARED COLEMAN RENDERING 9 [facility] INC INC W/INTERP& POSTPROC DIFF WORK STATION URNLS DIP 90093 J[facility]ED COLEMAN 9 [facility] STICK/TAB INC INC LET REAGENT AUTO MICROSCOP Y BLOOD 30403 J[facility]ED COLEMAN COUNT 9 [facility] COMPLETE INC INC AUTO&AUTO DIFRNTL WBC ALBUMIN 29619 JARED COLEMAN URINE [address] [facility] MICROALBU INC INC MIN QUANTIATI VE COLLECTIO 03212 JARED COLEMAN N VENOUS [address] [facility] BLOOD INC INC VENIPUNCT URE RENAL 67616 JARED COLEMAN FUNCTION 9 [facility] PANEL INC INC URNLS DIP 95681 J[facility]ED COLEMAN 9 [facility] STICK/TAB INC INC LET REAGENT AUTO MICROSCOP Y RADIOLOGI 40008 Jaylyn ASHLEY EXAM 9 MEDICAL CLAUDETTE CHEST 2 IMAGING VIEWS ASSOCIATE FRONTAL&L S ATERAL BASIC 64019 JARED COLEMAN METABOLIC 9 [facility] [place] [address] SELAM BENNETT, HEAD/BRAI 9 MEDICAL CLAUDETTE N W/O IMAGING [place] [address] JARED COLEMAN TROPONIN 9 [facility] QUANTITAT INC INC WILMER ECG 19596 JARED COLEMAN ROUTINE 9 [facility] ECG INC INC W/LEAST 12 LDS TRCG ONLY W/O I&R CREATINE 80558 JARED JARED KINASE 9 [facility] TOTAL INC INC 3D 29205 SELAM BENNETT, RENDERING 9 MEDICAL CLAUDETTE W/INTERP IMAGING & ASSOCIATE POSTPROCE S SS SUPERVISI ON BLOOD 30064 J[facility]ED COLEMAN COUNT 9 [facility] COMPLETE INC INC AUTO&AUTO DIFRNTL WBC ECG 16565 JARED RODRIGUEZ ROUTINE 9 [facility] W/LEAST PROF SERV 12 LDS I&R ONLY CREATINE 79890 JARED FINLEYON KINASE MB 9 [facility] FRACTION INC INC ONLY CREATINE 73969 JARED FINLEYON KINASE MB 8 [facility] FRACTION INC INC ONLY BLOOD 57075 JARED COLEMAN COUNT 8 [facility] COMPLETE INC INC AUTO&AUTO DIFRNTL WBC CREATINE 26181 JARED FINLEYON KINASE 8 [facility] TOTAL INC INC ECG 46400 JARED COLEMAN ROUTINE 8 [facility] ECG INC INC W/LEAST 12 LDS TRCG ONLY W/O I&[place] [address] JARED COLEMAN TROPONIN 8 [facility] QUANTITAT INC INC WILMER RADIOLOGI 49259 JARED COLEMAN C 8 [facility] EXAMINATI INC INC ON CHEST [place] FRONTAL BASIC 03787 JARED COLEMAN METABOLIC 8 [facility] PANEL INC INC CALCIUM TOTAL RADEX 10342 SELAM ROSSIUTCHER, ANKLE 8 MEDICAL CLAUDETTE COMPLETE IMAGING MINIMUM 3 ASSOCIATE VIEWS S CREATINE 85587 JARED FINLEYON KINASE MB 8 [facility] FRACTION INC INC ONLY BASIC 16300 JARED COLEMAN METABOLIC 8 [facility] PANEL INC INC CALCIUM TOTAL RADIOLOGI 83569 JARED JARED C 8 [facility] EXAMINATI INC INC ON CHEST [place] FRONTAL THROMBOPL 12473 JARED FINLEYON ASTIN 8 [facility] TIME INC INC PARTIAL PLASMA/[place] [address] JARED JARED TROPONIN 8 [facility] QUANTITAT INC INC WILMER CREATINE 72283 JARED COLEMAN KINASE [facility] TOTAL INC INC PROTHROMB 54187 JARED JARED IN TIME [facility] INC INC ECG 49631 JARED COLEMAN ROUTINE 8 [facility] ECG INC INC W/LEAST 12 LDS TRCG ONLY W/O I&R ECG 24923 JARED PEREYRAMIJay ROUTINE 8 [facility] W/LEAST PROF SERV 12 LDS I&R ONLY BLOOD 09675 JARED FINLEYON COUNT 8 [facility] COMPLETE INC INC AUTO&AUTO DIFRNTL WBC Encounters Encounter Start End Date Code Location Performer Type Date EMERGENCY 45284 TANIYA FUNES 7 7 PHYSICIAN SIMONE S, PLLC T VISIT HIGH/URGE NT SEVERITY HOSPITAL JARED - 7 7 [facility] OUTPATIEN INC T OFFICE 15057 [facility] WANDER OUTPATIEN 7 7 PHYSICIAN T VISIT S GROUP 25 MINUTES HOSPITAL JARED - [address] [facility] OUTPATIEN INC T OFFICE 62116 [facility] ANNA-M OUTPATIEN 7 7 PHYSICIAN JEREMÍASAM T VISIT S GROUP 15 MINUTES OFFICE 31969 [facility] DEBRA OUTPATIEN 7 7 PHYSICIAN T VISIT S GROUP 15 MINUTES HOSPITAL JARED - 7 7 [facility] OUTPATIEN INC T OFFICE 23200 [facility] YMRAGHAV OUTPATIEN 7 7 PHYSICIAN T VISIT S GROUP 15 MINUTES HOSPITAL JARED - 7 7 [facility] OUTPATIEN INC T OFFICE 62989 [facility] FRYMAN OUTPATIEN 7 7 PHYSICIAN T VISIT S GROUP 15 MINUTES OFFICE 44664 [facility] ANNA-M OUTPATIEN 7 7 PHYSICIAN CHAN T NEW 45 S GROUP MINUTES HOSPITAL JARED - 7 7 [facility] OUTPATIEN INC T HOSPITAL JARED - 7 7 [facility] OUTPATIEN INC T OFFICE 58714 [facility] WANDER OUTPATIEN 7 7 PHYSICIAN T NEW 45 S GROUP MINUTES HOSPITAL JARED - 7 7 [facility] OUTPATIEN INC T OFFICE 27217 [facility] YMAN OUTPATIEN 7 7 PHYSICIAN T NEW 20 S GROUP MINUTES [facility] - 6 6 [facility] OUTPATIEN INC T EMERGENCY 50194 JARED DEPT 6 6 [facility] VISIT INC HIGH SEVERITY& THREAT FUNCJ EMERGENCY 50244 JARED 6 6 [facility] DEPARTMEN INC T VISIT LIMITED/M INOR PROB EMERGENCY 45190 TANIYA PAULINO 6 6 PHYSICIAN U [facility] T VISIT MODERATE SEVERITY HOSPITAL JARED - 6 6 [facility] OUTPATIEN INC T Emergency RONALDO Funes MD (ER) 3 21:56 3 02:15 [facility] Emergency RONALDO SCHWARTZ MD (ER) 3 15:53 3 20:00 [facility] JARED - 1 1 [facility] OUTPATIEN INC T HOSPITAL JARED - 0 0 [facility] OUTPATIEN INC T EMERGENCY 41783 ANGEL VIVEROS DEPT 0 0 EMERGENCY III, VISIT SERVICES BRAIN HIGH SEVERITY& ASSOCIATE THREAT S [facility] EM[facility] 89308 JARED 0 0 [facility] DEPARTMEN INC T VISIT LOW/MODER SEVERITY HOSPITAL JARED - 9 9 [facility] OUTPATIEN INC T EMERGENCY 60116 JARED 9 9 [facility] DEPARTMEN INC T VISIT LOW/MODER SEVERITY EMERGENCY 17681 ANGEL FUNES DEPT 9 9 EMERGENCY GISELE S VISIT SERVICES HIGH SEVERITY& ASSOCIATE THREAT S [facility] 30655 ANGEL JOHNSON DEPT 9 9 EMERGENCY ROSSY VISIT SERVICES O HIGH SEVERITY& ASSOCIATE THREAT S [facility] JARED - 9 9 [facility] OUTPATIEN INC T EMERGENCY 70625 JARED 9 9 [facility] DEPARTMEN INC T VISIT HIGH/URGE NT SEVERITY OFFICE 53103 MEANS BUTROS, OUTPATIEN 9 9 ADULT АННА T VISIT PRIMARY [address] [facility] H[facility]PITAL JARED - 9 9 [facility] OUTPATIEN INC T EMERGENCY 10517 JARED 9 9 [facility] DEPARTMEN INC T VISIT HIGH/URGE NT SEVERITY HOSPITAL JARED - 9 9 [facility] OUTPATIEN INC T EMERGENCY 07167 JARED 8 8 [facility] DEPARTMEN INC T VISIT HIGH/URGE NT SEVERITY HOSPITAL JARED - 8 8 [facility] OUTPATIEN INC T EMERGENCY 56121 SANAM JOHNSON DEPT 8 8 NATIONAL ROSSY VISIT CORPORATI O HIGH ON SEVERITY& THREAT [facility] JARED - 8 8 [facility] OUTPATIEN INC T EMERGENCY 91104 SANAM JOHNSON, 8 8 NATIONAL ROSSY DEPARTMEN CORPORATI O T VISIT ON MODERATE SEVERITY EMERGENCY [address] [facility] INC T VISIT HIGH/URGE [facility] JARED Plascencia 8 [facility] OUTPATIEN INC T
--- OUTSIDE RECORDS SUMMARY | 2016-12-13 03:45 | External Medical Summary Rpt ---
Author Author , EVELIA ALTAMIRANO Address Unknown Phone [email or web address] Referrals Care Team Providers Care Product Marketing Manager Name Role Phone ANITHAGUTIERREZANITHAGUTIERREZ Unavailable Unavailable MISAEL BAHENA, Unavailable Unavailable JOSEF MISAEL A GARCES, GARCES Unavailable Unavailable BUTROS, REZKALLA, Unavailable Unavailable BUTROS, REZKALLA SABRINA, CLAUDETTE, Unavailable Unavailable SABRINA, CLAUDETTE AMRTIN RICHARDSONAN Unavailable Unavailable MANUELITO BILLINGS Unavailable Unavailable GISELE BILLINGS, Unavailable Unavailable GISELE BILLINGS [facility] Unavailable Unavailable INC, [facility] Unavailable Unavailable HOSPITAL P, [facility], Unavailable Unavailable [facility] Unavailable Unavailable IMAGING ASS, [facility] BERTO RODRIGUEZ, Unavailable Unavailable BERTO RODRIGUEZ GRE, Unavailable Unavailable ANGEL CRUZ, Unavailable Unavailable BRAIN JOSE JR Unavailable Unavailable Carmencita, BRAIN HERNÁNDEZ JR, EMMETT P, Unavailable Unavailable MARCELO NAPIER [facility], Unavailable Unavailable TANIYA LOBO, [facility] SHOJAEI-MUKUND, Unavailable Unavailable SHOJAEI-MUKUND WANDER VIRAMONTES Unavailable Unavailable SOKAN, ROSSY O, Unavailable Unavailable SOKAN, ROSSY O SONNY WEAVER, Unavailable Unavailable SOALPESHU BRAIN CRAFT III, Unavailable Unavailable BRAIN VIVEROS III, Unavailable Unavailable BRAIN LOBO [facility] GABRIEL, Unavailable Unavailable HARRISON Duarte Continuity of Care Document - 10-17-2007 through 2016 Problems Code Diagnosis DOS Provider Status [id number] SPRAIN 10-27-2016 TANIYA UNSPECIFIED PHYSICIANS, SITE LT [facility] KNEE INITIAL ENCNTR R55 SYNCOPE AND 10-04-2016 [facility] COLLAPSE PHYSICIANS GROUP I10 ESSENTIAL 09-26-2016 [facility] PRIMARY PHYSICIANS HYPERTENSIO GROUP N I4510 UNSPECIFIED 09-26-2016 [facility] RIGHT PHYSICIANS BUNDLE-BRAN GROUP CH BLOCK N182 CHRONIC 09-26-2016 [facility] KIDNEY PHYSICIANS DISEASE GROUP STAGE 2 MILD N08 GLOMERULAR 04-26-2016 [facility]ORDERS [facility] IN DISEASES INC CLASSIFIED ELSW R42 DIZZINESS 04-26-2016 [facility] GIDDINESS INC I150 RENOVASCULA 03-15-2016 BRAIN SAEED, [facility] HYPERTENSIO N R9431 ABNORMAL 03-15-2016 [facility] ELECTROCARD [facility] IOGRAM INC I119 HYPERTENSIV 03-07-2016 [facility] E HEART PHYSICIANS DISEASE GROUP WITHOUT HEART FAILURE M542 CERVICALGIA 02-28-2016 [facility] M545 LOW BACK 02-28-2016 [place] [facility] R51 HEADACHE 02-28-2016 [facility] [id number] UNSPECIFIED 02-28-2016 [place] INJURY OF MEDICAL NECK IMAGING ASS INITIAL ENCOUNTER Z0389 ENCOUNTER 02-28-2016 [facility] OT MEDICAL SUSPCT DZ & IMAGING ASS COND RULED OUT B86351 PT 02-28-2016 [facility] P MED REGIMEN OTH REASON H6092 UNSPECIFIED 12-13-2015 [facility] OTITIS PHYSICIANS, EXTERNA [facility] LEFT EAR J029 ACUTE 12-13-2015 [facility] PHARYNGITIS [facility], PLLC UNSPECIFIED Z0100 ENCOUNTER 10-30-2015 [facility] EXAM EYES & GRE VISION W/O ABNORMAL FIND 4019 UNSPECIFIED 10-03-2010 [facility]SSENTIAL [facility] [place] N [address] DIAB W/OTH 01-06-2009 [facility] TYPE II/UNS HOSPITAL NOT PROF SERV UNCNTRL 4011 ESSENTIAL 01-06-2009 [facility] HYPERTENSIO EMERGENCY N, [facility] 5859 CHRONIC 01-06-2009 [facility] UNSPECIFIED PROF SERV 7840 HEADACHE 01-06-2009 [facility] 5950 ACUTE 10-16-2008 [facility]IS [facility] 5959 UNSPECIFIED 10-16-2008 [facility] 80790 HEMATURIA 10-16-2008 [place] [facility] 7242 LUMBAGO 10-16-2008 [facility] 7804 DIZZINESS 10-16-2008 [facility] GIDDINESS [facility] 97956 OTHER 10-16-2008 [facility] MALAISE [facility] 5829 CHRONIC GLN 09-08-2008 [facility] L LESION KIDNEY 7910 PROTEINURIA 09-08-2008 [facility] 4358 OTHER 03-25-2008 [facility] CEREBRAL PROF SERV ISCHEMIAS 54141 CHEST PAIN 03-25-2008 [place] [facility] 79979 SHORTNESS 10-29-2007 [facility] [employer] 29705 PRECORDIAL 10-29-2007 [facility] PAIN [employer] 02885 OTHER CHEST 10-29-2007 [facility] PAIN [facility] 33869 UNSPECIFIED 10-25-2007 [facility] SITE OF [employer] SPRAIN AND STRAIN 14395 ABNORMAL 10-17-2007 [facility] COAGULATION [facility] PROFILE INC Medications Na ND Rx Da Fi Fi [...] 50 1- 6- 00 07 MA ve AK 55 20 20 49 RT IL 35 17 17 16 4 44 PH 20 AR MA MG CY TA #5 BL 91 ET LI 68 08 09 60 30 00 WA Ac SI 64 -0 -0 .0 00 L- ti NO 50 3- 1- 00 07 MA ve AK 55 20 20 49 RT IL 35 [...] 91 MG TA B LI 54 07 60 30 00 WA Ac SI 45 -0 -2 .0 00 L- ti NO 80 5- 8- 00 07 MA ve AK 99 20 20 49 RT IL 61 [...] 91 MG TA B HY 68 07 60 [address] 64 -0 -2 .0 00 L- ti OC 50 5- 8- 00 07 MA ve HL 51 20 20 49 RT OR 05 17 17 16 OT 4 47 PH HI AR AZ MA ID CY E 25 #5 91 MG TA B LI 54 08 08 60 30 00 MS Ac SI 45 -0 -3 .0 00 L- ti NO 80 5- 0- 00 07 MA ve AK 99 20 20 49 RT IL 61 17 17 16 0 44 PH 20 AR MA MG CY TA #5 BL 91 ET CA 00 06 60 30 00 MS Ac RV 09 -0 -3 .0 00 L- ti ED 37 5- 0- 00 07 MA ve IL 29 20 20 49 RT OL 60 17 17 16 5 46 PH 25 AR MA MG CY TA #5 BL 91 ET HY 68 06 06 60 30 00 [...] 10 91 MG TA B LI 54 05 05 60 30 00 WA Ac SI 45 -0 -2 .0 00 L- ti NO 80 3- 6- 00 07 MA ve AK 99 20 20 46 RT IL 61 [...] #5 91 MG TA B AM 68 03 04 30 30 00 [...] 80 1- 8- 00 07 MA ve AK 99 20 20 46 RT IL 61 17 17 24 0 27 PH 20 AR MA MG CY TA #5 BL 91 ET AM 16 03 03 30 10 00 [...] 80 7- 1- 00 07 MA ve AK 99 20 20 46 RT IL 61 [...] 80 1- 4- 00 07 MA ve AK 99 20 20 46 RT IL 61 [...] 91 MG TA B LI 54 01 60 30 00 WA Ac SI 45 -0 -2 .0 00 L- ti NO 80 3- 7- 00 07 MA ve AK 99 20 20 46 RT IL 61 17 17 24 0 27 PH 20 AR MA MG CY TA #5 BL 91 ET CA 68 01 01 28 14 00 WA Ac RV 46 -0 -2 .0 00 L- ti ED 20 3- 7- 00 07 MA ve IL 16 20 20 46 RT OL 50 17 17 21 5 58 PH 25 AR MA MG CY TA #5 BL 91 ET ME 68 12 01 60 30 00 WA Ac TO 64 -2 -2 .0 00 L- ti AK 50 7- 0- 00 07 MA ve OL 19 20 20 46 RT OL 05 16 17 06 9 98 PH TA AR RT MA RA CY TE #5 50 91 MG TA B LI 54 12 01 30 30 00 WA Ac SI 45 -2 -2 .0 00 L- ti NO 80 7- 0- 00 07 MA ve AK 99 20 20 46 RT IL 11 16 17 07 -H [address] AR Z MA 20 CY -2 5 #5 MG 91 TA B Procedures Procedure DOS Code Location Performer Comment INTERROGA 23266 [facility] WANDER TION 7 PHYSICIAN EVALUATIO S GROUP N IN PERSON ILR SYSTEM ECG 01376 [facility] WANDER ROUTINE 7 PHYSICIAN ECG S GROUP W/LEAST 12 LDS I&R ONLY ECG 92551 [facility] COLEMAN ROUTINE 7 [facility] ECG INC INC W/LEAST 12 LDS TRCG ONLY W/O I&R INTERROGA 38979 [facility] WANDER TION 7 PHYSICIAN EVALUATIO S GROUP N IN PERSON ILR SYSTEM INTERROGA 97041 [facility] WANDER TION 7 PHYSICIAN EVALUATIO S GROUP N IN PERSON ILR SYSTEM INTERROGA 70160 [facility] WANDER TION 7 PHYSICIAN EVALUATIO S GROUP N IN PERSON ILR SYSTEM ECG 48623 [facility] COLEMAN ROUTINE 7 [facility] ECG INC INC W/LEAST 12 LDS TRCG ONLY W/O I&R ELECTROEN 31239 [facility] CO[facility] CEPHALOGR 7 [facility] AM W/REC INC INC AWAKE&ASL EEP DUP-SCAN 75247 BRAIN GARCES ARTL CELINE 7 S. DARLIN, ABDL/PEL/ PLLC SCROT&/RP R ORGN T ECG 38608 [facility] COLEMAN ROUTINE 7 [facility] ECG INC INC W/LEAST 12 LDS TRCG ONLY W/O I&R DUPLEX 00639 [facility] COLEMAN SCAN 7 [facility] EXTRACRAN [place] [address] [facility] COLEMAN RETROPERI 7 [facility] TONEAL INC INC REAL [place] W/[place] [address] SELAM GARCES RETROPERI 7 MEDICAL TONEAL IMAGING REAL TIME ASS W/IMAGE LIMITED IMPLANTAT 92339 [facility] COLEMAN ION 7 [facility] PT-ACTIVA INC INC YANY CARDIAC EVENT RECORDER EVENT C1764 [facility] COLEMAN RECORDER 7 [facility] CARDIAC INC INC UNCLASSIF J3490 [facility]ED COLEMAN IED DRUGS 7 [facility]OS[facility] INC INC ECG 06104 [facility] COLEMAN ROUTINE 7 [facility] ECG INC INC W/LEAST 12 LDS TRCG ONLY W/O I&[place] [address] [facility] COLEMAN FREE 7 [facility] [place] [address] [facility] COLEMAN THYROID 7 [facility] STIMULATI INC INC NG HORMONE TSH COLLECTIO 76588 [facility] COLEMAN N VENOUS 7 [facility] BLOOD INC INC VENIPUNCT URE ECG 61345 [facility] ROUTINE 7 PHYSICIAN ECG S GROUP W/LEAST 12 LDS I&R ONLY SEDIMENTA 21927 J[facility] COLEMAN TILISA RATE 7 [facility] RBC INC INC NON-AUTOM ATED BLOOD 04727 [facility] COLEMAN COUNT 6 [facility] COMPLETE INC INC AUTO&AUTO DIFRNTL WBC RADIOLOGI 45243 [facility] COLEMAN C EXAM 6 [facility] CHEST 2 INC INC VIEWS FRONTAL&L [facility] G0378 [facility] COLEMAN OBSERVATI 6 [facility] ON INC INC SERVICE PER HOUR COLLECTIO 09035 [facility] COLEMAN N VENOUS 6 [facility] BLOOD INC INC VENIPUNCT URE BASIC 37790 J[facility] COLEMAN METABOLIC 6 [facility] PANEL INC INC CALCIUM TOTAL ECHO 27017 [facility] COLEMAN TTHRC R-T 6 [facility]OS[facility] 2D INC INC W/WOM-MOD E COMPL SPEC&COLR D ELECTROEN 04819 [facility] COLEMAN CEPHALOGR 6 [facility] AM W/REC INC INC AWAKE&PETTY WSY THER 34211 [facility] COLEMAN PROPH/DX 6 [facility] NJX EA INC INC SEQL IV PUSH SBST/DRUG FAC ECG 86815 [facility] BAHENA ROUTINE 6 [facility] W/LEAST P 12 LDS I&R ONLY RADEX 49508 J[facility] COLEMAN SPINE 6 [facility] LUMBOSACR INC INC [place] [address] [place] [address] J[facility]ED COLEMAN CERVICAL 6 [facility] SPINE W/O INC INC CONTRAST MATERIAL THER 35376 [facility] COLEMAN PROPH/DX 6 [facility] NJX IV INC INC PUSH SINGLE/1S T SBST/DRUG ECG 87941 J[facility]DE FINLEYON ROUTINE 6 [facility] ECG INC INC W/LEAST 12 LDS TRCG ONLY W/O I&R HOSPITAL G0378 [facility] COLE[facility] OBSERVATI 6 [facility] [place] [address] [facility] FINLEYON HEAD/BRAI 6 [facility] N W/O INC INC CONTRAST MATERIAL CREATINE 72073 JAREDLISA COLEMAN KINASE MB 6 [facility] FRACTION INC INC ONLY COLLECTIO 63374 J[facility] COLEMAN N VENOUS 6 [facility] BLOOD INC INC VENIPUNCT URE COMPREHEN 49457 [facility] COLEMAN SIVE 6 [facility] METABOLIC INC INC PANEL RADIOLOGI 91933 [facility] COLEMAN C EXAM 6 [facility] CHEST 2 INC INC VIEWS FRONTAL&L ATERAL BLOOD 04076 [facility] COLEMAN COUNT 6 [facility] COMPLETE INC INC AUTO&AUTO DIFRNTL WBC CREATINE 56540 [facility] COLEMAN KINASE 6 [facility] [place] [address] [facility] COLEMAN TROPONIN 6 [facility] QUANTITAT INC INC WILMER UNCLASSIF J3490 J[facility] COLEMAN IED DRUGS 6 [facility] INC INC OPHTH 34752 [facility] GRE GRE XM&EVAL COMPRE NEW PT 1/> VST DETERMINA 47541 ANGEL FLOWERS 6 GRE GRE REFRACTIV E STATE BLOOD 13946 [facility] COLEMAN COUNT 1 [facility] COMPLETE INC INC AUTO&AUTO DIFRNTL WBC LIPID 86349 [facility] TERRY PANEL 1 [facility] HARVEY INC COMPREHEN 93186 [facility] COLEMAN SIVE 1 [facility] METABOLIC INC INC PANEL COLLECTIO 03702 [facility] COLEMAN N VENOUS 1 [facility] [place] [address] J[facility]ED COLEMAN THYROID 1 [facility] STIMULATI INC INC NG HORMONE TSH BASIC 99265 [facility] COLEMAN METABOLIC 0 [facility] PANEL INC INC CALCIUM TOTAL ECG 61186 ANGEL VIVEROS ROUTINE 0 EMERGENCY III, ECG SERVICES BRAIN W/LEAST 12 LDS ASSOCIATE I&[place] [address] [facility] COLEMAN INFUSION 0 [facility] THERAPY/P INC INC ROPHYLAXI S /DX 1ST TO 1 HR THERAPEUT 40361 [facility] COLEMAN IC 0 [facility] INJECTION INC INC IV PUSH EACH NEW DRUG ECG 62112 [facility] COLEMAN ROUTINE 0 [facility] ECG INC INC W/LEAST 12 LDS TRCG ONLY W/O I&R ECG 33206 [facility] COLEMAN ROUTINE 9 [facility] ECG INC INC W/LEAST 12 LDS TRCG ONLY W/O I&R BASIC 05584 [facility] COLEMAN METABOLIC 9 [facility] PANEL INC INC CALCIUM TOTAL CREATINE 27838 JARED COLEMAN KINASE MB 9 [facility] FRACTION INC INC ONLY ECG 87671 [facility]ARED ANITHASON, ROUTINE 9 [facility] ECG HOSPITAL W/LEAST PROF SERV 12 LDS I&[place] [address] J[facility]ED COLEMAN TROPONIN 9 [facility] QUANTITAT INC INC WILMER BLOOD 81475 [facility] COLEMAN COUNT 9 [facility] COMPLETE INC INC AUTO&AUTO DIFRNTL WBC CREATINE 81655 [facility]ED COLEMAN KINASE 9 [facility] TOTAL INC INC BLOOD 79716 JARED JARED COUNT 9 [facility] COMPLETE INC INC AUTO&AUTO DIFRNTL WBC URNLS DIP 02887 [facility] COLEMAN 9 [facility] STICK/TAB INC INC LET REAGENT AUTO MICROSCOP Y CT PELVIS 41624 SELAM NAPIER, W/O 9 [facility] P CONTRAST IMAGING MATERIAL ASSOCIATE S 3D 30624 SELAM KARTHIKEYAN, RENDERING 9 MEDICAL [facility] P IMAGING W/INTERP& ASSOCIATE POSTPROC S DIFF WORK STATION COMPREHEN 97671 [facility] COLEMAN SIVE 9 [facility] [place] [address] SELAM NAPIER, ABDOMEN 9 MEDICAL MARCELO P W/O IMAGING CONTRAST ASSOCIATE MATERIAL S COLLECTIO 06949 [facility] COLEMAN N VENOUS 9 [facility] BLOOD INC INC VENIPUNCT URE URNLS DIP 44728 [facility]ED COLEMAN 9 [facility] STICK/TAB INC INC LET REAGENT AUTO MICROSCOP Y RENAL 53627 JARED COLEMAN FUNCTION 9 [facility] PANEL INC INC ALBUMIN 19170 [facility]ARED COLEMAN URINE 9 [facility] MICROALBU INC INC MIN QUANTIATI VE CREATINE 98305 JARED COLEMAN KINASE 9 [facility] [place] [address] JARED COLEMAN TROPONIN 9 [facility] QUANTITAT INC INC WILMER BLOOD 46411 JARED COLEMAN COUNT 9 [facility] COMPLETE INC INC AUTO&AUTO DIFRNTL WBC RADIOLOGI 19680 JARED COLEMAN C EXAM 9 [facility]OS[facility] CHEST 2 INC INC VIEWS FRONTAL&L ATERAL ECG 42504 JARED MICHAEL, ROUTINE 9 [facility] HOSPITAL W/LEAST PROF SERV 12 LDS I&R ONLY BASIC 69978 [facility]ED COLEMAN METABOLIC 9 [facility] [place] [address] JARED COLEMAN HEAD/BRAI 9 [facility] N W/O INC INC CONTRAST MATERIAL CREATINE 29162 JARED COLEMAN KINASE MB 9 [facility] FRACTION INC INC ONLY ECG 43245 JARED COLEMAN ROUTINE 9 [facility] ECG INC INC W/LEAST 12 LDS TRCG ONLY W/O I&R 3D 84299 [facility]ED COLEMAN RENDERING 9 [facility] W/INTERP INC INC & POSTPROCE SS SUPERVISI ON ECG 23340 [facility]ED COLEMAN ROUTINE 8 [facility] ECG INC INC W/LEAST 12 LDS TRCG ONLY W/O I&R BASIC 20060 [facility] COLEMAN METABOLIC 8 [facility] PANEL INC INC CALCIUM TOTAL CREATINE 40445 JARED COLEMAN KINASE MB 8 [facility] FRACTION INC INC ONLY RADIOLOGI 37309 J[facility]ED COLEMAN C 8 [facility] EXAMINATI INC INC [place] [address] JARED COLEMAN TROPONIN 8 [facility] QUANTITAT INC INC WILMER BLOOD 22847 [facility] COLEMAN COUNT 8 [facility] COMPLETE INC INC AUTO&AUTO DIFRNTL WBC CREATINE 20791 [facility] COLEMAN KINASE 8 [facility] TOTAL INC INC RADEX 28922 J[facility]ED COLEMAN ANKLE 8 [facility] COMPLETE INC INC MINIMUM 3 VIEWS ECG 85099 [facility] COLEMAN ROUTINE 8 [facility] ECG INC INC W/LEAST 12 LDS TRCG ONLY W/O I&R CREATINE 06241 [facility]ED COLEMAN KINASE 8 [facility] TOTAL INC INC PROTHROMB 08814 [facility]ED COLEMAN IN TIME 8 [facility] INC INC BLOOD 78556 [facility]ED COLEMAN COUNT 8 [facility] COMPLETE INC INC AUTO&[place] [address] JARED COLEMAN TROPONIN 8 [facility] QUANTITAT INC INC WILMER ECG 69631 JARED PEREYRAMIJay ROUTINE 8 [facility] W/LEAST PROF SERV 12 LDS I&R ONLY THROMBOPL 75400 [facility]ED COLEMAN ASTIN 8 [facility] TIME INC INC PARTIAL PLASMA/WH OLE BLOOD RADIOLOGI 69137 Jaylyn VARGAS 8 MEDICAL MARCELO P EXAMINATI IMAGING ON CHEST ASSOCIATE SINGLE S VIEW FRONTAL CREATINE 83162 JARED COLEMAN KINASE MB 8 [facility] FRACTION INC INC ONLY BASIC 20201 [facility] COLEMAN METABOLIC 8 [facility] PANEL INC INC CALCIUM TOTAL Encounters Encounter Start End Date Code Location Performer Type Date EMERGENCY 63527 TANIYA BILLINGS 7 7 PHYSICIAN DEPARTMEN S, PLLC T VISIT HIGH/URGE NT SEVERITY HOSPITAL [facility] - 7 7 [facility] OUTPATIEN INC T OFFICE 70001 [facility] WANDER OUTPATIEN 7 7 PHYSICIAN T VISIT S GROUP 25 MINUTES HOSPITAL JARED - 7 7 [facility] OUTPATIEN INC T OFFICE 66987 [facility] SHOJAEI-M OUTPATIEN 7 7 PHYSICIAN OGHADDAM T VISIT S GROUP 15 MINUTES OFFICE 69980 [facility] FRYMAN OUTPATIEN 7 7 PHYSICIAN T VISIT S GROUP 15 MINUTES HOSPITAL JARED - 7 7 [facility] OUTPATIEN INC T OFFICE 33047 [facility] FRYMAN OUTPATIEN 7 7 PHYSICIAN T VISIT S GROUP 15 MINUTES HOSPITAL JARED - 7 7 [facility] OUTPATIEN INC T OFFICE 73490 [facility] SHOJAEI-M OUTPATIEN 7 7 PHYSICIAN OGHADDAM T NEW 45 S GROUP MINUTES OFFICE 63565 [facility] FRYMAN OUTPATIEN 7 7 PHYSICIAN T VISIT S GROUP 15 MINUTES HOSPITAL JARED - 7 7 [facility] OUTPATIEN INC [facility] JARED - 7 7 [facility] OUTPATIEN INC T OFFICE 40987 [facility] WANDER OUTPATIEN 7 7 PHYSICIAN T NEW 45 S GROUP MINUTES HOSPITAL JARED - 7 7 [facility] OUTPATIEN INC T OFFICE 45496 [facility] FRYMAN OUTPATIEN 7 7 PHYSICIAN T NEW 20 S GROUP MINUTES EMERGENCY 84082 JARED DEPT 6 6 [facility] VISIT INC HIGH SEVERITY& THREAT [facility] JARED - 6 6 [facility] OUTPATIEN INC [facility] JARED - 6 6 [facility] OUTPATIEN [facility] T EMERGENCY 40015 [facility] T VISIT LIMITED/M INOR PROB EMERGENCY 08614 TANIYA PAULINO 6 6 PHYSICIAN U [facility] S, [facility] T VISIT MODERATE SEVERITY HOSPITAL JARED - 1 1 [facility] OUTPATIEN [facility] T EMERGENCY 97694 ANGEL VIVEROS DEPT 0 0 EMERGENCY III, VISIT SERVICES BRAIN HIGH SEVERITY& ASSOCIATE THREAT S [facility] JARED - 0 0 [facility]ENC[facility] 04616 J[facility] [address] [facility] T VISIT LOW/MODER SEVERITY EMERGENCY 02069 JARED [address] [facility] T VISIT LOW/MODER SEVERITY EMERGENCY 30960 ANGEL BILLINGS, NARCISAT 9 9 EMERGENCY GISELE S VISIT SERVICES HIGH SEVERITY& ASSOCIATE THREAT S [facility] JARED - 9 9 [facility] OUTPATIEN [facility] H[facility]PITAL JARED - 9 9 [facility] OUTPATIEN [facility] EMERGENCY 40726 ANGEL JOHNSON DEPT 9 9 EMERGENCY ROS[place] VISIT SERVICES O HIGH SEVERITY& ASSOCIATE THREAT S [facility] EMERGENCY 19133 JARED [address] [facility] T VISIT HIGH/URGE NT SEVERITY HOSPITAL JARED - 9 9 [facility] OUTPATIEN [facility] T OFFICE 97323 ARMIDA GUERRA OUTPATIEN 9 9 ADULT АННА T VISIT PRIMARY 15 CARE [facility] JARED - 9 9 [facility] OUTPATIEN [facility] T EMERGENCY 34148 [facility] T VISIT HIGH/URGE NT SEVERITY EMERGENCY 66019 JARED 8 8 [facility] T VISIT HIGH/URGE NT SEVERITY EMERGENCY 97848 SANAM JOHNSON, NARCISAT 8 8 [facility] ROSSY VISIT CORPORATI O HIGH ON SEVERITY& THREAT [facility] AJRED - 8 8 [facility] JARED - 8 8 [facility] EMERGENCY 21834 JARED 8 8 [facility] T VISIT MODERATE [facility]VERITY EMERGENCY [id number] JARED 8 8 [facility] T VISIT HIGH/URGE NT SEVERITY HOSPITAL JARED - 8 8 [facility] T
--- OUTSIDE RECORDS SUMMARY | 2016-12-13 03:45 | External Medical Summary Rpt ---
Demographics Preferred Language Fijian Marital Status Unknown Samaritan Affiliation Unknown Race Unknown Ethnic Group Unknown Author Author EVELIA Address Unknown Phone Immunization No patient found.
--- OUTSIDE RECORDS SUMMARY | 2016-12-13 03:45 | External Medical Summary Rpt ---
Demographics Preferred Language Bulgarian Marital Status Unknown Advent Affiliation Unknown Race Unknown Ethnic Group Unknown Author Author EVELIA Address Unknown Phone Immunization No patient found.
--- OUTSIDE RECORDS SUMMARY | 2016-12-13 03:45 | External Medical Summary Rpt ---
Author Author , EVELIA ALTAMIRANO Address Unknown Phone [email or web address] Care Team Providers Care Certified Activities Director Name Role Phone ANITHAGUTIERREZANITHAGUTIERREZ Unavailable Unavailable MISAEL BAHENA, Unavailable Unavailable JOSEF MISAEL A GARCES, GARCES Unavailable Unavailable BUTROS, REZKALLA, Unavailable Unavailable BUTROS, REZKALLA SABRINA, CLAUDETTE, Unavailable Unavailable SABRINA, CLAUDETTE MARTIN RICHARDSONAN Unavailable Unavailable MANUELITO BILLINGS Unavailable Unavailable GISELE BILLINGS, Unavailable Unavailable GISELE BILLINGS [facility] Unavailable Unavailable INC, [facility] Unavailable Unavailable HOSPITAL P, [facility], [facility]available Unavailable [facility] Unavailable Unavailable [facility], [facility] BERTO RODRIGUEZ, Unavailable Unavailable BERTO RODRIGUEZ GRE, Unavailable Unavailable ANGEL CRUZ, Unavailable Unavailable BRAIN JOSE JR Unavailable Unavailable Carmencita, BRAIN HERNÁNDEZ JR, EMMETT P, Unavailable Unavailable MARCELO NAPIER [facility], Unavailable Unavailable TANIYA LOBO, [facility] SHOJAEI-MUKUND, Unavailable Unavailable SHOJAEI-MUKUND WANDER VIRAMONTES Unavailable Unavailable SOKAN, ROSSY O, Unavailable Unavailable SOKAN, ROSSY O SONNY WEAVER, Unavailable Unavailable SOALPESHU BRAIN CRAFT III, Unavailable Unavailable BRAIN VIVEROS III, Unavailable Unavailable BRAIN LOBO [facility] GAB[facility], Unavailable Unavailable HARRISON Duarte Continuity of Care Document - 10-17-2007 through 2016 Problems Code Diagnosis DOS Provider Status [id number] SPRAIN 10-27-2016 TANIYA UNSPECIFIED PHYSICIANS, SITE LT [facility] KNEE INITIAL ENCNTR R55 SYNCOPE AND 10-04-2016 [facility] COLLAPSE PHYSICIANS GROUP I10 ESSENTIAL 09-26-2016 [facility] PRIMARY PHYSICIANS HYPERTENSIO GROUP N I4510 UNSPECIFIED 09-26-2016 [facility] RIGHT PHYSICIANS BUNDLE-BRAN GROUP CH BLOCK N182 CHRONIC 09-26-2016 [facility] KIDNEY PHYSICIANS DISEASE GROUP STAGE 2 MILD N08 GLOMERULAR 04-26-2016 [facility] DISORDERS [facility] IN DISEASES INC CLASSIFIED ELSW R42 DIZZINESS 04-26-2016 [facility] GIDDINESS INC I150 RENOVASCULA 03-15-2016 BRAIN SAEED, [facility] HYPERTENSIO N R9431 ABNORMAL 03-15-2016 [facility] ELECTROCARD [facility] IOGRAM INC I119 HYPERTENSIV 03-07-2016 [facility] E HEART PHYSICIANS DISEASE GROUP WITHOUT HEART FAILURE M542 CERVICALGIA 02-28-2016 [facility] M545 LOW BACK 02-28-2016 [facility] PAIN [facility] R51 HEADACHE 02-28-2016 [facility] [id number] UNSPECIFIED 02-28-2016 [facility] INJURY OF MEDICAL NECK IMAGING ASS INITIAL ENCOUNTER Z0389 ENCOUNTER 02-28-2016 [facility] OT MEDICAL SUSPCT DZ & IMAGING ASS COND RULED OUT [id number] PT 02-28-2016 [facility] P MED REGIMEN OTH REASON H6092 UNSPECIFIED 12-13-2015 T[facility] OTITIS PHYSICIANS, EXTERNA [facility] LEFT EAR J029 ACUTE 12-13-2015 [facility] PHARYNGITIS [facility]ANS, PLLC UNSPECIFIED Z0100 ENCOUNTER 10-30-2015 [facility] EXAM EYES & GRE VISION W/O ABNORMAL FIND 4019 UNSPECIFIED 10-03-2010 [facility] ESSENTIAL [facility] HYPERTENSIO INC N 79607 DIAB W/OTH 01-06-2009 [facility] TYPE II[facility]UNS [facility] NOT PROF SERV UNCNTRL 4011 ESSENTIAL 01-06-2009 [facility] HYPERTENSIO EMERGENCY N, [facility] 5859 CHRONIC 01-06-2009 [facility] KIDNEY [facility] DISEASE HOSPITAL UNSPECIFIED PROF SERV 7840 HEADACHE 01-06-2009 [facility] 5950 ACUTE 10-16-2008 [facility]STITIS [facility] 5959 UNSPECIFIED 10-16-2008 [facility] 45375 HEMATURIA 10-16-2008 [facility] 7242 LUMBAGO 10-16-2008 [facility] 7804 DIZZINESS 10-16-2008 [facility] GIDDINESS INC 02984 OTHER 10-16-2008 [facility] 5829 CHRONIC GLN 09-08-2008 [facility] L LESION KIDNEY 7910 PROTEINURIA 09-08-2008 [facility] 4358 OTHER 03-25-2008 [facility] CEREBRAL PROF SERV ISCHEMIAS 30536 CHEST PAIN 03-25-2008 [facility] 05563 SHORTNESS 10-29-2007 [facility] [employer] 17065 PRECORDIAL 10-29-2007 [facility] PAIN [employer] 61785 OTHER CHEST 10-29-2007 [facility] PAIN [facility] 56119 UNSPECIFIED 10-25-2007 [facility] SITE OF PWA SPRAIN AND STRAIN 55001 ABNORMAL 10-17-2007 [facility] COAGULATION [facility] PROFILE [...] 50 1- 6- 00 07 MA ve UT 55 20 20 49 RT IL 35 17 17 16 4 44 PH 20 AR MA MG CY TA #5 BL 91 ET LI 68 08 09 60 30 00 WA Ac SI 64 -0 -0 .0 00 L- ti NO 50 3- 1- 00 07 MA ve UT 55 20 20 49 RT IL 35 [...] 80 5- 8- 00 07 MA ve UT 99 20 20 49 RT IL 61 [...] LI 54 08 08 60 30 00 DC Ac SI 45 -0 -3 .0 00 L- ti NO 80 5- 0- 00 07 MA ve UT 99 20 20 49 RT IL 61 17 17 16 0 44 PH 20 AR MA MG CY TA #5 BL 91 ET CA 00 06 60 30 00 DC Ac RV 09 -0 -3 .0 00 [...] 80 3- 6- 00 07 MA ve UT 99 20 20 46 RT IL 61 [...] 80 1- 8- 00 07 MA ve UT 99 20 20 46 RT IL 61 [...] 80 7- 1- 00 07 MA ve UT 99 20 20 46 RT IL 61 [...] 80 1- 4- 00 07 MA ve UT 99 20 20 46 RT IL 61 [...] 80 3- 7- 00 07 MA ve UT 99 20 20 46 RT IL 61 [...] 64 -2 -2 .0 00 L- ti UT 50 7- 0- 00 07 MA ve OL 19 20 20 46 RT OL 05 16 17 06 9 98 PH TA AR RT MA RA CY TE #5 50 91 MG TA B LI 54 12 01 30 30 00 WA Ac SI 45 -2 -2 .0 00 L- ti NO 80 7- 0- 00 07 MA ve UT 99 20 20 46 RT IL 11 16 17 07 -H [address] AR Z MA 20 CY -2 5 #5 MG 91 TA B Procedures Procedure DOS Code Location Performer Comment INTERROGA 96815 [facility] WANDER TION 7 PHYSICIAN EVALUATIO S GROUP N IN PERSON ILR SYSTEM ECG 09924 [facility] ROUTINE 7 PHYSICIAN ECG S GROUP W/LEAST 12 LDS I&R ONLY ECG 04833 [facility] COLEMAN ROUTINE 7 [facility] ECG INC INC W/LEAST 12 LDS TRCG ONLY W/O I&R INTERROGA 69307 [facility] TION 7 PHYSICIAN EVALUATIO S GROUP N IN PERSON ILR SYSTEM INTERROGA 49235 [facility] TION 7 PHYSICIAN EVALUATIO S GROUP N IN PERSON ILR SYSTEM INTERROGA 02912 [facility] WAND[facility] TION 7 PHYSICIAN EVALUATIO S GROUP N IN PERSON ILR SYSTEM ECG 98585 [facility] COLEMAN ROUTINE 7 [facility] ECG INC INC W/LEAST 12 LDS TRCG ONLY W/O I&R ELECTROEN 74306 [facility] COLEMAN CEPHALOGR 7 [facility] AM W/REC INC INC AWAKE&ASL EEP DUP-SCAN 61702 BRAIN GARCES ARTL CELINE 7 S. DARLIN, ABDL/PEL/ PLLC SCROT&/RP R ORGN T ECG 44894 [facility] COLEMAN ROUTINE 7 [facility] ECG INC INC W/LEAST 12 LDS TRCG ONLY W/O I&R DUPLEX 51803 [facility] COLEMAN SCAN 7 [facility] EXTRACRAN [place] [address] [facility] COLEMAN RETROPERI 7 [facility] TONEAL INC [place] W/[place] [address] SELAM GARCES RETROPERI 7 MEDICAL TONEAL IMAGING REAL TIME ASS W/IMAGE LIMITED IMPLANTAT 10849 [facility] COLEMAN ION 7 [facility] PT-ACTIVA INC INC YANY CARDIAC EVENT RECORDER EVENT C1764 [facility]ED COLEMAN RECORDER 7 [facility] CARDIAC INC INC UNCLASSIF J3490 J[facility]ED COLEMAN IED DRUGS 7 [facility]OS[facility] INC INC ECG 75478 J[facility] COLEMAN ROUTINE 7 [facility] ECG INC INC W/LEAST 12 LDS TRCG ONLY W/O I&[place] [address] J[facility]ED COLEMAN FREE 7 [facility] [place] [address] J[facility] COLEMAN THYROID 7 [facility] STIMULATI INC INC NG HORMONE TSH COLLECTIO 44660 JARED COLEMAN N VENOUS 7 [facility] BLOOD INC INC VENIPUNCT URE ECG 17022 [facility] ROUTINE 7 PHYSICIAN ECG S GROUP W/LEAST 12 LDS I&R ONLY SEDIMENTA 73186 [facility] COLEMAN TILISA RATE 7 [facility]OS[facility] RBC INC INC NON-AUTOM ATED BLOOD 17328 [facility] COLEMAN COUNT 6 [facility] COMPLETE INC INC AUTO&AUTO DIFRNTL WBC RADIOLOGI 52995 [facility]ED COLEMAN C EXAM 6 [facility] CHEST 2 INC INC VIEWS FRONTAL&L [facility] G0378 [facility] COLEMAN OBSERVATI 6 [facility]OS[facility] ON INC INC SERVICE PER HOUR COLLECTIO 60085 JARED COLEMAN N VENOUS 6 [facility] BLOOD INC INC VENIPUNCT URE BASIC 09020 J[facility] COLEMAN METABOLIC 6 [facility] PANEL INC INC CALCIUM TOTAL ECHO 51088 [facility]ED COLEMAN TTHRC R-T 6 [facility] 2D INC INC W/WOM-MOD E COMPL SPEC&COLR D ELECTROEN 79904 [facility] COLEMAN CEPHALOGR 6 [facility]OS[facility] AM W/REC INC INC AWAKE&PETTY WSY THER 36055 [facility] COLEMAN PROPH/DX 6 [facility]OS[facility] NJX EA INC INC SEQL IV PUSH SBST/DRUG FAC ECG 32373 [facility] BAHENA ROUTINE 6 [facility] W/LEAST P 12 LDS I&R ONLY RADEX 65951 J[facility] COLEMAN SPINE 6 [facility] LUMBOSACR INC INC [place] [address] [address] [place] [address] [facility]ED COLEMAN CERVICAL 6 [facility] SPINE W/O INC INC CONTRAST MATERIAL THER 83788 J[facility] COLEMAN PROPH/DX 6 [facility] NJX IV INC INC PUSH SINGLE/1S T SBST/DRUG ECG 66892 [facility] FINLEYON ROUTINE 6 [facility] ECG INC INC W/LEAST 12 LDS TRCG ONLY W/O I&R HOSPITAL G0378 [facility] COLEMAN OBSERVATI 6 [facility] [place] [place] [address] J[facility]ED FINLEYON HEAD/BRAI 6 [facility] N W/O INC INC CONTRAST MATERIAL CREATINE 89529 JAREDLISA COLEMAN KINASE MB 6 [facility] FRACTION INC INC ONLY COLLECTIO 95628 J[facility]ED COLEMAN N VENOUS 6 [facility] BLOOD INC INC VENIPUNCT URE COMPREHEN 62854 [facility] COLEMAN SIVE 6 [facility] METABOLIC INC INC PANEL RADIOLOGI 09322 J[facility]ED COLEMAN C EXAM 6 [facility] CHEST 2 INC INC VIEWS FRONTAL&L ATERAL BLOOD 25665 [facility] COLEMAN COUNT 6 [facility] COMPLETE INC INC AUTO&AUTO DIFRNTL WBC CREATINE 35502 [facility] COLEMAN KINASE 6 [facility] [place] [address] [facility]ED COLEMAN TROPONIN 6 [facility] QUANTITAT INC INC WILMER UNCLASSIF J3490 JARED COLEMAN IED DRUGS 6 [facility] INC INC OPHTH 25156 [facility] GRE GRE XM&EVAL COMPRE NEW PT 1/> VST DETERMINA 92140 ANGEL FLOWERS 6 GRE GRE REFRACTIV E STATE BLOOD 30233 [facility] COLEMAN COUNT 1 [facility] COMPLETE INC INC AUTO&AUTO DIFRNTL WBC LIPID 90349 [facility] TERRY PANEL 1 [facility] HARVEY INC COMPREHEN 75791 J[facility]ED COLEMAN SIVE 1 [facility] METABOLIC INC INC PANEL COLLECTIO 25628 [facility]ED COLEMAN N VENOUS 1 [facility] [place] [address] J[facility]ED COLEMAN THYROID 1 [facility] STIMULATI INC INC NG HORMONE TSH BASIC 70475 [facility] COLEMAN METABOLIC 0 [facility] PANEL INC INC CALCIUM TOTAL ECG 88273 ANGEL VIVEROS ROUTINE 0 EMERGENCY III, ECG SERVICES BRAIN W/LEAST 12 LDS [place]OCI[place] [address] [facility] COLEMAN INFUSION 0 [facility] THERAPY/P INC INC ROPHYLAXI S /DX 1ST TO 1 HR THERAPEUT 75635 [facility] COLEMAN IC 0 [facility] INJECTION INC INC IV PUSH EACH NEW DRUG ECG 32838 [facility] COLEMAN ROUTINE 0 [facility] ECG INC INC W/LEAST 12 LDS TRCG ONLY W/O I&R ECG 33498 [facility] COLEMAN ROUTINE 9 [facility] ECG INC INC W/LEAST 12 LDS TRCG ONLY W/O I&R BASIC 51036 [facility] COLEMAN METABOLIC 9 [facility] PANEL INC INC CALCIUM TOTAL CREATINE 22220 JARED COLEMAN KINASE MB 9 [facility] FRACTION INC INC ONLY ECG 13282 [facility]ED ANITHASON, ROUTINE 9 [facility] ECG HOSPITAL W/LEAST PROF SERV 12 LDS I&[place] [address] J[facility]ED COLEAMN TROPONIN 9 [facility] QUANTITAT INC INC WILMER BLOOD 63144 J[facility]ED COLEMAN COUNT 9 [facility] COMPLETE INC INC AUTO&AUTO DIFRNTL WBC CREATINE 31805 [facility]ED COLEMAN KINASE 9 [facility] TOTAL INC INC BLOOD 55630 JARED JARED COUNT 9 [facility] COMPLETE INC INC AUTO&AUTO DIFRNTL WBC URNLS DIP 27197 [facility] COLEMAN 9 [facility] STICK/TAB INC INC LET REAGENT AUTO MICROSCOP Y CT PELVIS 79324 SELAM NAPIER, W/O 9 [facility] P CONTRAST IMAGING MATERIAL ASSOCIATE S 3D 92337 SELAM KARTHIKEYAN, RENDERING 9 [facility] P IMAGING W/INTERP& ASSOCIATE POSTPROC S DIFF WORK STATION COMPREHEN 70546 [facility] COLEMAN SIVE 9 [facility] [place] [address] SELAM NAPIER, ABDOMEN 9 MEDICAL MARCELO P W/O IMAGING CONTRAST ASSOCIATE MATERIAL S COLLECTIO 99331 [facility]ED COLEMAN N VENOUS 9 [facility] BLOOD INC INC VENIPUNCT URE URNLS DIP 53025 JARED COLEMAN 9 [facility] STICK/TAB INC INC LET REAGENT AUTO MICROSCOP Y RENAL 57527 JARED COLEMAN FUNCTION 9 [facility] PANEL INC INC ALBUMIN 65575 JARED COLEMAN URINE 9 [facility] MICROALBU INC INC MIN QUANTIATI VE CREATINE 89975 JARED COLEMAN KINASE 9 [facility] [place] [address] JARED COLEMAN TROPONIN 9 [facility] QUANTITAT INC INC WILMER BLOOD 28405 JARED COLEMAN COUNT 9 [facility] COMPLETE INC INC AUTO&AUTO DIFRNTL WBC RADIOLOGI 97420 JARED COLEMAN C EXAM 9 [facility]OSP CHEST 2 INC INC VIEWS FRONTAL&L ATERAL ECG 36196 JARED MICHAEL, ROUTINE 9 [facility] W/LEAST PROF SERV 12 LDS I&R ONLY BASIC 20454 JARED COLEMAN METABOLIC 9 [facility] [place] [address] JARED COLEMAN HEAD/BRAI 9 [facility] N W/O INC INC CONTRAST MATERIAL CREATINE 04362 JARED COLEMAN KINASE MB 9 [facility] FRACTION INC INC ONLY ECG 55559 JARED COLEMAN ROUTINE 9 [facility] ECG INC INC W/LEAST 12 LDS TRCG ONLY W/O I&R 3D 72560 [facility]ARED COLEMAN RENDERING 9 [facility] W/INTERP INC INC & POSTPROCE SS SUPERVISI ON ECG 82080 [facility]ED COLEMAN ROUTINE 8 [facility] ECG INC INC W/LEAST 12 LDS TRCG ONLY W/O I&R BASIC 10231 [facility] COLEMAN METABOLIC 8 [facility] PANEL INC INC CALCIUM TOTAL CREATINE 55850 JARED COLEMAN KINASE MB 8 [facility] FRACTION INC INC ONLY RADIOLOGI 86817 JARED COLEMAN C 8 [facility] EXAMINATI INC INC [place] [address] JARED COLEMAN TROPONIN 8 [facility] QUANTITAT INC INC WILMER BLOOD 07068 J[facility]ED COLEMAN COUNT 8 [facility] COMPLETE INC INC AUTO&AUTO DIFRNTL WBC CREATINE 29664 J[facility]ED COLEMAN KINASE 8 [facility] TOTAL INC INC RADEX 73249 JARED COLEMAN ANKLE 8 [facility] COMPLETE INC INC MINIMUM 3 VIEWS ECG 32143 JARED COLEMAN ROUTINE 8 [facility] ECG INC INC W/LEAST 12 LDS TRCG ONLY W/O I&R CREATINE 65505 [facility]ED COLEMAN KINASE 8 [facility] TOTAL INC INC PROTHROMB 39924 [facility]ED COLEMAN IN TIME 8 [facility] INC INC BLOOD 98403 JARED COLEMAN COUNT 8 [facility] COMPLETE INC INC AUTO&[place] [address] J[facility]ED COLEMAN TROPONIN 8 [facility] QUANTITAT INC INC WILMER ECG 60885 JARED PEREYRAMIJay ROUTINE 8 [facility] W/LEAST PROF SERV 12 LDS I&R ONLY THROMBOPL 82980 [facility]ED COLEMAN ASTIN 8 [facility] TIME INC INC PARTIAL PLASMA/WH OLE BLOOD RADIOLOGI 09488 Jaylyn VARGAS 8 MEDICAL MARCELO P EXAMINATI IMAGING ON CHEST ASSOCIATE SINGLE S VIEW FRONTAL CREATINE 10739 JARED COLEMAN KINASE MB 8 [facility] FRACTION INC INC ONLY BASIC 63026 JARED CLOEMAN METABOLIC 8 [facility] PANEL INC INC CALCIUM TOTAL Encounters Encounter Start End Date Code Location Performer Type Date EMERGENCY 26621 TANIYA BILLINGS 7 7 PHYSICIAN DEPARTMEN S, PLLC T VISIT HIGH/URGE NT SEVERITY HOSPITAL [facility] - 7 7 [facility] T OFFICE 14846 [facility] OUTPATIEN 7 7 PHYSICIAN T VISIT S GROUP 25 MINUTES HOSPITAL JARED - 7 7 [facility] T OFFICE 63036 [facility] SHOJAEI-M OUTPATIEN 7 7 PHYSICIAN OGHADDAM T VISIT S GROUP 15 MINUTES OFFICE 54608 [facility] OUTPATIEN 7 7 PHYSICIAN T VISIT S GROUP 15 MINUTES HOSPITAL JARED - 7 7 [facility] INC T OFFICE 78210 [facility] OUTPATIEN 7 7 PHYSICIAN T VISIT S GROUP 15 MINUTES HOSPITAL JARED - 7 7 [facility] OUTPAT[facility]EN INC T OFFICE 35778 [facility] OUTPATIEN 7 7 PHYSICIAN OGHADDAM T NEW 45 S GROUP MINUTES OFFICE 51254 [facility] OUTPATIEN 7 7 PHYSICIAN T VISIT S GROUP 15 MINUTES HOSPITAL JARED - 7 7 [facility] - 7 7 [facility] OUT[facility] INC T OFFICE 41468 [facility] OUT[facility] 7 7 PHYSICIAN T NEW 45 S GROUP MINUTES HOSPITAL JARED - 7 7 [facility] OUTPATIEN INC T OFFICE 78769 [facility] OUTPATIEN 7 7 PHYSICIAN T NEW 20 S GROUP MINUTES EMERGENCY 25115 J[facility]ED DEPT 6 6 [facility] VISIT INC HIGH SEVERITY& THREAT [facility] JARED - 6 6 [facility] J[facility] - 6 6 [facility]PAT[facility] T EMERGENCY [address] [facility] T VISIT LIMITED/M INOR PROB EMERGENCY 88197 TANIYA PAULINO 6 6 PHYSICIAN U [facility] S, [facility] T VISIT MODERATE SEVERITY HOSPITAL JARED - 1 1 [facility] OUTPATIEN [facility] T EMERGENCY 45828 ANGEL VIVEROS DEPT 0 0 EMERGENCY III, VISIT SERVICES BRAIN HIGH SEVERITY& ASSOCIATE THREAT S [facility] JARED - 0 0 [facility] EMERGENCY 66970 JARED 0 0 [facility] T VISIT LOW/MODER SEVERITY EMERGENCY 45974 JARED 9 9 [facility] T VISIT LOW/MODER SEVERITY EMERGENCY 67553 ANGEL BILLINGS, NARCISAT 9 9 EMERGENCY GISELE S VISIT SERVICES HIGH SEVERITY& ASSOCIATE THREAT S [facility] JARED - 9 9 [facility] JARED - 9 9 [facility] EMERGENCY 07220 ANGEL JOHNSON DEPT 9 9 EMERGENCY [place] VISIT SERVICES O HIGH SEVERITY& ASSOCIATE THREAT S [facility] EMERGENCY 20014 JARED 9 9 [facility] T VISIT HIGH/URGE NT SEVERITY HOSPITAL JARED - 9 9 [facility] OUTPATIEN [facility] T OFFICE 45092 ARMIDA GUERRA OUTPATIEN 9 9 ADULT АННА T VISIT PRIMARY 15 CARE [facility] JARED - 9 9 [facility] OUTPATIEN [facility] T EMERGENCY [address] [facility] T VISIT HIGH/URGE NT SEVERITY EMERGENCY 95365 JARED 8 8 [facility] T VISIT HIGH/URGE NT SEVERITY EMERGENCY 47973 SANAM JOHNSON, NARCISAT 8 8 [facility] ROSSY VISIT CORPORATI O HIGH ON SEVERITY& THREAT [facility] JARED - 8 8 [facility] JARED - 8 8 [facility] EMERGENCY 87032 JARED 8 8 [facility] T VISIT MODERATE SEVERITY EMERGENCY 66866 JARED 8 8 [facility] T VISIT HIGH/URGE NT SEVERITY HOSPITAL JARED - 8 8 [facility] T
--- OUTSIDE RECORDS SUMMARY | 2016-12-13 03:46 | External Medical Summary Rpt ---
Author Author EVELIA Khan, [employer] Address Unknown Phone Unavailable Results Urate [Mass/volume] in Serum or Plasma Observa Value Referen Units Interpr Notes Date tion ce etation Range Urate 2.6 - 7.2 mg/dL High No Sep 18 [Mass/vol informati 2017 2:10 ume] in on in PM Serum or source Plasma data CBC W Auto Differential panel in Blood Observa Value Referen Units Interpr Notes Date tion ce etation Range Basophils 0 - 0.2 K/MM3 Normal No Sep 18 informati 2016 2:10 [#/volume on in PM ] in source Blood by data Automated count Basophils 0.1 - 2.0 % Normal No Sep 18 /100 informati 2017 2:10 leukocyte on in PM s in source Blood by data Automated count Eosinophi 0.0 - 0.4 K/mm3 Normal No Sep 18 ls informati 2016 2:10 [#/volume on in PM ] in source Blood by data Automated count Eosinophi 0.1 - % Normal No Sep 18 ls/100 12.0 informati 2016 2:10 leukocyte on in PM s in source Blood by data Automated count Granulocy 1.3 - 8.0 K/mm3 Normal No Sep 18 mckenzie informati 2016 2:10 [#/volume on in PM ] in source Blood by data Automated count Granulocy 37.0 - % Normal No Sep 18 mckenzie/100 80.0 informati 2016 2:10 leukocyte on in PM s in source Blood by data Automated count Hematocri 42.0 - % Low No Sep 18 t [Volume 52.0 informati 2016 2:10 on in PM Fraction] source of Blood data Hemoglobi 14.1 - g/dL Low No Sep 18 n 18.0 informati 2016 2:10 [Mass/vol on in PM ume] in source Blood data Lymphocyt 0.7 - 4.5 K/mm3 Normal No Sep 18 es informati 2016 2:10 [#/volume on in PM ] in source Unspecifi data ed specimen by Automated count Lymphocyt 10 - 50 % Normal No Sep 18 es informati 2017 2:10 [#/volume on in PM ] in source Unspecifi data ed specimen by Automated count Erythrocy 27 - 31.2 pg Normal No Sep 18 te mean informati 2017 2:10 corpuscul on in PM ar source hemoglobi data n [Entitic mass] Erythrocy 31.8 - g/dl Normal No Sep 18 te mean 35.4 informati 2017 2:10 corpuscul on in PM ar source hemoglobi data n concentra tion [Mass/vol ume] by Automated count Erythrocy 82.2 - fl Normal No Sep 18 te mean 97.8 informati 2017 2:10 corpuscul on in PM ar volume source [Entitic data volume] by Automated count Monocytes 0.1 - 1.0 K/mm3 Normal No Sep 18 informati 2017 2:10 [#/volume on in PM ] in source Blood by data Automated count Monocytes 1.7 - 9.3 % Normal No Sep 18 /100 informati 2017 2:10 leukocyte on in PM s in source Blood by data Automated count Platelet 7.4 - fl Normal No Sep 18 mean 10.4 informati 2017 2:10 volume on in PM [Entitic source volume] data in Blood by Automated count Platelets 142 - 424 K/mm3 High No Sep 18 informati 2017 2:10 [#/volume on in PM ] in source Blood data Erythrocy 4.6 - 6.2 M/mm3 Normal No Sep 18 mckenzie informati 2017 2:10 [#/volume on in PM ] in source Amniotic data fluid Erythrocy 11.5 - % Normal No Sep 18 te 17.5 informati 2016 2:10 distribut on in PM ion width source [Entitic data volume] by Automated count Leukocyte 4.8 - K/MM3 Normal No Sep 18 s 10.8 informati 2016 2:10 [#/volume on in PM ] in source Blood data
--- OUTSIDE RECORDS SUMMARY | 2016-12-13 03:46 | External Medical Summary Rpt ---
Author Author EVELIA Khan, EVELIA [employer] [place] Organization [employer] Address Unknown Phone Unavailable [...]
== END 2016-11-20 14:44 | disposition home or self-care (01) ==
LOC: UTC 12:29
PROVIDERS: Nurse Practitioner Family
DX: M10.9 Gout, unspecified (principal); I12.9 Hypertensive chronic kidney disease with stage 1 through stage 4 chronic kidney disease, or unspecified chronic kidney disease; N18.9 Chronic kidney disease, unspecified; Z79.899 Other long term (current) drug therapy

== ENCOUNTER → 2017-01-29 | Outpatient (CLI) | payer MEDICAID ==
[~2017-01-29] MED LIST changes: +PREDNISONE 10MG10 MG PO
[2017-01-29 14:28] LABS: HEMOGLOBIN 13.3 g/dL (14.1-18.0); LYMPH # 1.5 K/mm3 (0.7-4.5); LYMPH % 28.3 % (10-50)
[2017-01-29 14:41] LABS: URINE BILIRUBIN - DIPSTICK NEGATIVE (NEG); URINE BLOOD NEGATIVE (NEG)
[2017-01-29 14:51] LABS: URINE SQUAMOUS CELLS OCC #/hpf (OCC)
[2017-01-29 15:43] LABS: BUN 28 mg/dL (7-18)
[2017-01-29 15:51] LABS: GFR (ESTIMATED) 33 ML/MIN (>60)
== END ==
LOC: LAB 13:24
PROVIDERS: Internal Medicine Nephrology
DX: N18.3 Chronic kidney disease, stage 3 (moderate) (principal)